=== PATIENT | female | born 1955 | race Caucasian/White ===

== ENCOUNTER 2021-03-14 13:53 | Emergency (ER) | payer OTHER, SELFPAY ==
--- NOTE | ~2021-03-14 | US_ITS ---
EXAMINATION: US VENOUS ULTRASOUND WITH DOPPLER LOWER EXTREMITY, LEFT CLINICAL INFORMATION: Left lower extremity pain COMPARISON: None TECHNIQUE: Ultrasound of the deep veins is performed from the hip to the calf with compression sonography and color and pulse Doppler assessment. Spectral analysis with color-flow imaging is performed. FINDINGS: There is normal venous compression and respiratory variation and augmented flow. The visualized common femoral vein, superficial femoral vein, profunda femoral vein, popliteal vein, and the trifurcation region shows no evidence of deep venous thrombosis. There is no significant popliteal fossa cyst. If the patient's symptoms persist, followup ultrasound in 5 days 7 days might be of value to exclude proximal propagation from a non-visualized calf vein. US/US venous duplex LE LT IMPRESSION: No DVT demonstrated in the left lower extremity.
[2021-03-14 15:32] VITALS: BP 127/98; PULSE 114; RESP 18; TEMP 36.6; O2SAT 99; BMI 32.3
--- NOTE | 2021-03-14 16:26 | ED_ITS ---
HPI - Extremity Problem General Chief complaint: General Medical Stated complaint: left leg pain Time Seen by Provider: 03/14/21 15:51 Source: patient Mode of arrival: ambulatory Limitations: no limitations History of Present Illness HPI Narrative: 65-year-old female presenting to the ED with complaints of left leg pain/swelling for the past few days worse today is concern of a DVT. Denies any dizziness, lightheadedness, nausea/vomiting, cough, shortness of breath, dyspnea on exertion, chest pain or any other symptoms complaints or concerns at this time. MD Complaint: extremity pain and extremity swelling Onset (ago): day(s) (Few days worse today) Pain Consistency: constant Location: left Severity scale (1-10): 6 Quality: aching and constant Radiation: none Relieving factors: nothing Exacerbating factors: palpation Associated symptoms: denies other symptoms Related Data Previous Rx's Medication Instructions Recorded hydrocortisone 1 appl TOPICAL QID PRN #454 g 03/14/21 Allergies Allergy/AdvReac Type Severity Reaction Status Date / Time No Known Allergies Allergy Verified 03/14/21 15:51 Review of Systems Review of Systems: Constitutional : No changes in activity, No lethargy, No recent prior head injury, No agitation, No increased fussiness ENT/Mouth : No Ear Pain, No Nasal discharge/drainage Eyes: No Eye Pain, No Swelling, No Redness, No Foreign Body, No Vision Changes Cardiovascular : No Chest Pain, No SOB Respiratory : No Cough Gastrointestinal : No Nausea, No Vomiting, No abdominal Pain Genitourinary : No Dysuria, No Urinary Frequency, No Urinary Incontinence, No Urgency, No Flank Pain Musculoskeletal : Positive left leg pain/swelling, No neck stiffness, No back pain/injury Skin : No lacerations Neuro : No unsteady gait, No Paresthesias, No Loss of Consciousness, No altered mental status, No Headache Yes all other systems are reviewed and are negative [facility] Past Medical History Attestation statement: The following information was validated with the patient. Social History Social History Advance Directives: No Advance Directives Information Provided: Yes Physical Exam Vital Signs: Vital Signs: Last Vital Signs Temp 97.8 F 03/14/21 15:32 Pulse 114 H 03/14/21 15:32 Resp 18 06/18/21 15:32 BP 127/98 H 03/14/21 15:32 Pulse Ox 99 03/14/21 15:32 Body Mass Index 32.3 vital signs have been reviewed as normal and appeared to be correct. Blood pressure normal. Heart rate normal. Respiration rate normal. Temperature normal. Oxygen saturation normal. Appearance: Alert. Oriented X3. No acute distress. Head: Normal external exam. Normocephalic. Atraumatic. Eyes: PERRLA. EOMI. Conjunctiva and sclera normal. Eyelids normal. ENT: Pharynx normal. Uvula midline. Moist mucous membranes. Neck: Normal inspection. Neck supple. FROM. No adenopathy. No meningeal signs. CVS: Normal heart rate and rhythm. Heart sound normal. Pulses normal throughout. No murmurs/rales/gallops. Respiratory: No respiratory distress. Painless inspiration. Breath sounds normal. No wheezes/rales/rhonchi noted. Chest nontender. No accessory muscle usage noted or decreased air movement noted. Back: Full range of motion noted. No rashes/lesion/induration/fluctuance or signs of infection noted. Skin: Skin warm and dry. Normal skin color. Normal skin turgor. No rashes/lesions/lacerations noted. Extremities:pt c ttp to poterior left lower leg. No lower extremity edema. Otherwise all other Extremities exhibit normal range of motion and nontender. Neuro: Oriented X 3. No motor deficit. No sensory deficit. Reflexes normal. Normal steady gait. No focal neuro deficits noted. Vascular: + radial pulses/+ 2 distal pedal pulses/+2 dorsalis pedis b/l. Normal cap refill. No cyanosis noted to upper extremity nails and lower extremity toes nails. Course Course Course Narrative: 65-year-old female presenting to the ED with complaints of atraumatic left lower leg pain/swelling for the past few days worse today. Denies any cardiac related complaints. Ultrasound obtained and negative for DVT or any other acute processes. Will DC home with symptomatic treatment and instructions to return if any new or worsening symptoms to follow up with primary care provider. Patient understands agrees with this plan. MDM - Extremity (Nontraumatic) Medical Records Attestation: I reviewed the patient's medical records. Imaging Data Venous Doppler of left lower extremity for DVT: Attestation: I personally reviewed and interpreted this imaging study as follows: Radiologist's impression: FINDINGS: There is normal venous compression and respiratory variation and augmented flow. The visualized common femoral vein, superficial femoral vein, profunda femoral vein, popliteal vein, and the trifurcation region shows no evidence of deep venous thrombosis. There is no significant popliteal fossa cyst. If the patient's symptoms persist, followup ultrasound in 5 days 7 days might be of value to exclude proximal propagation from a non-visualized calf vein. US/US venous duplex LE LT IMPRESSION: No DVT demonstrated in the left lower extremity. Discharge Plan Discharge Clinical Impression: Leg strain, Eczema Patient Disposition: Home, Self-Care Instructions: Leg Pain (ED) Additional Instructions: If you develop any dizziness, chest pain, shortness of breath, shortness of breath when your walking or when yearly and down flat he needs to return to the emergency department today. You reported that your not having any of the symptoms although if any of them developed the need to return. Follow up with her primary care provider. Prescriptions: New hydrocortisone 2.5 % ointment 1 appl topical QID PRN (Reason: eczema) Qty: 454 RF: 0 Referrals: Physician,None [Primary Care Provider] - 2 days (your pcp) Print Language: Luxembourgish
== END 2021-03-14 17:34 | disposition home or self-care (01) ==
PROVIDERS: Emergency Provider Internal Medicine
DX: S86.912A Strain of unspecified muscle(s) and tendon(s) at lower leg level, left leg, initial encounter (principal); L30.9 Dermatitis, unspecified; M79.605 Pain in left leg; X58.XXXA Exposure to other specified factors, initial encounter; Y93.9 Activity, unspecified; Y92.9 Unspecified place or not applicable; Y99.9 Unspecified external cause status
CPT/HCPCS: 93971; 99283; 99284

== ENCOUNTER 2021-06-20 15:22 | Emergency (ER) | payer OTHER, SELFPAY ==
--- NOTE | ~2021-06-20 | XR_ITS ---
EXAMINATION: XR CHEST CLINICAL INFORMATION: Chest pain COMPARISON: None TECHNIQUE: AP portable view of the chest was obtained. FINDINGS: Heart is upper limits of normal in size. No pneumothorax or pleural effusion. No evidence of pulmonary edema. There is degenerative spurring about the left glenohumeral joint. XR/XR chest 1V IMPRESSION: No significant acute parenchymal disease identified.
[2021-06-20 15:29] VITALS: BP 119/67; PULSE 133; RESP 18; TEMP 36.8; O2SAT 100; BMI 34.9
--- NOTE | 2021-06-20 15:49 | ECG_ITS ---
Test Reason : CHEST PAIN Blood Pressure : / mmHG Vent. Rate : 128 BPM Atrial Rate : 113 BPM P-R Int : 000 ms QRS Dur : 086 ms QT Int : 270 ms P-R-T Axes : 000 -15 -11 degrees QTc Int : 394 ms Atrial fibrillation with rapid ventricular response Nonspecific T wave abnormality Abnormal ECG No previous ECGs available Referred By: Generic ED Physician Electronically Signed By:KYLIE DE LOS SANTOS
[2021-06-20 16:01] LABS: MANUAL DIFF FLAG NO
[2021-06-20 16:03] LABS: Basophils Percent Auto 0.6 % (0-2); Eosinophils Absolute Auto 0.3 X10*3/uL (0.0-0.4); Eosinophils Percent Auto 5.1 % (0-4); Hematocrit 45.1 % (37-47); Hemoglobin 14.3 g/dl (12.0-16.0); Imm Gran Abs Auto 0.01 X10*3/uL (0.00-0.03); Imm Gran Pct Auto 0.2 % (0.0-0.4); Lymphocytes Absolute Auto 2.5 X10*3/uL (1.2-4.9); Lymphocytes Percent Auto 39.2 % (20-40); Mean Corpuscular HGB Conc 31.7 g/dl (31.0-35.0); Mean Corpuscular Hemoglobin 27.9 pg (27.0-33.0); Mean Corpuscular Volume 88.1 fL (80-98); Mean Platelet Volume 9.9 fL (9.4-12.3); Monocytes Absolute Auto 0.5 X10*3/uL (0.1-1.2); Monocytes Percent Auto 8.1 % (2-11); Neutrophils Percent Auto 46.8 % (45-73); Platelet Count 187 X10*3/uL (160-400); Red Blood Count 5.12 X10*6/uL (4.20-5.50); White Blood Count 6.4 X10*3/uL (4.8-10.8)
[2021-06-20 16:17] LABS: Anion Gap 13 (12-20); Blood Urea Nitrogen 18 mg/dL (9-16); Calcium 9.2 mg/dL (8.4-10.2); Carbon Dioxide 24 mmol/L (22-29); Chloride 107 mmol/L (96-108); Creatinine Clr Calc Pharmacy 86.8; Estimated Glomerular Filt Rate > 60; Glucose Random 94 mg/dL (60-115); Potassium 4.1 mmol/L (3.3-5.1); Sodium 140 mmol/L (135-145)
[2021-06-20 16:24] LABS: Troponin-I High Sensitivity < 3.5 ng/L (<3.5-17.0)
[2021-06-20 16:55] VITALS: BP 122/77; PULSE 126
[2021-06-20] MEDS: dilTIAZem HCL 50 MG/10 ML VIAL IVPUSH ×2 (16:55→17:59)
--- NOTE | 2021-06-20 16:58 | ED.ARRPALP ---
HPI - Arrhythmia/Palpitations General Chief Complaint: Arrhythmia/Palpitations Stated Complaint: palpitations Time Seen by Provider: 06/20/21 16:37 Source: patient Mode of arrival: ambulatory Limitations: no limitations History of Present Illness HPI narrative: Patient is a 66-year-old female the past medical history of CHF, AFib on Eliquis who presents with weeks of palpitations. She states she has been in [place] for the last month where she saw doctor who prescribed her 100 Lopressor, 40 furosemide b.i.d. which she takes 80 q.h.s., and Eliquis but was not told she has AFib. She has not met with [place] doctor as she just returned from [facility]. She denies any chest pain, dizziness, arm pain, shoulder pain, neck pain, back pain, headaches, nausea, sob, sweating vomiting or diarrhea or fevers. She regionally went to Urgent Care, they gave us a report of the patient having an elevated D-dimer of 2283 an elevated BNP leg swelling, shortness of breath and her heart rate and 130 to 150s in the [facility] emergency department. Unsure where this information came from Related Data Previous Rx's Medication Instructions Recorded hydrocortisone 2.5 % topical 1 appl TOPICAL QID PRN #454 g 03/14/21 ointment diltiazem HCl 120 mg 120 mg PO QAM #10 cap 06/20/21 capsule,extended release 24 hr (Cardizem CD) Allergies Allergy/AdvReac Type Severity Reaction Status Date / Time No Known Allergies Allergy Verified 03/14/21 15:51 Review of Systems Review of Systems: Yes all other systems are reviewed and are negative [facility] Social History Social History Advance Directives: No Advance Directives Information Provided: No Patient : No Physical Exam Vital Signs: Vital Signs: Last Vital Signs Temp 97.6 F 06/20/21 17:48 Pulse 110 H 06/20/21 17:59 Resp 17 06/20/21 17:48 BP 132/90 H 06/20/21 17:59 Pulse Ox 97 06/20/21 17:48 Body Mass Index 34.9 Const: General: cooperative, healthy appearing, comfortable, no acute distress and well developed Orientation/consciousness: patient oriented x3 Limitations: no limitations HENMT: Head: Yes normal to inspection Eyes: General: appearance normal, both eyes and all related structures Neck: Neck: Yes normal visual inspection, Yes full ROM and Yes no JVD Resp: Effort & Inspection: normal respiratory effort and able to speak in complete sentences Auscultation: clear to auscultation bilaterally Cardio: Rate: tachycardic Rhythm: abnormal rhythm Heart sounds: normal S1 and S2 GI: Inspection: Yes normal to inspection Palpation (GI): Soft to palpation and nontender Skin: General skin exam: no rashes or lesions noted Neuro: General: patient oriented x3 Extrem: General: Yes normal to inspection, Yes no pedal edema and Yes no calf tenderness Course Course Course Narrative: Patient is a 66-year-old female the past medical history of CHF, AFib on Eliquis who presents with weeks of palpitations. EKG showed a AFib with RVR, rate of 128BPM. Chest x-ray was normal, labs normal but a BNP and D-dimer were not done, I will do those now. Will give 5 mg Cardizem and reassess. Reevaluation(s) Reevaluation #1: Patient's heart rate down to the low 100s, will give 2nd dose of IV Cardizem and monitor. Likely discharge shortly with follow-up with Cardiology and a 10 day supply of p.o. Cardizem. Time: 17:25 MDM - Arrhythmia/Palpitations Lab Data Attestation: I reviewed the patient's lab results. Result diagrams: 06/20/21 15:55 06/20/21 15:55 Labs: Lab Results 06/20/21 06/20/21 06/20/21 Range/Units 15:55 15:55 15:55 WBC 6.4 (4.8-10.8) X10*3/uL RBC 5.12 (4.20-5.50) X10*6/uL Hgb 14.3 (12.0-16.0) g/dl Hct 45.1 (37-47) % MCV 88.1 (80-98) fL MCH 27.9 (27.0-33.0) pg MCHC 31.7 (31.0-35.0) g/dl RDW 14.0 (11.0-16.0) % Plt Count 187 (160-400) X10*3/uL MPV 9.9 (9.4-12.3) fL Immature Gran % (Auto) 0.2 (0.0-0.4) % Neut % (Auto) 46.8 (45-73) % Lymph % (Auto) 39.2 (20-40) % [place] % (Auto) 8.1 (2-11) % Eos % (Auto) 5.1 H (0-4) % Baso % (Auto) 0.6 (0-2) % Lymph # (Auto) 2.5 (1.2-4.9) X10*3/uL [place] # (Auto) 0.5 (0.1-1.2) X10*3/uL Eos # (Auto) 0.3 (0.0-0.4) X10*3/uL Baso # (Auto) 0.0 (0.0-0.2) X10*3/uL Abs Immat Gran (auto) 0.01 (0.00-0.03) X10*3/uL Absolute Neuts (auto) 3.0 (2.0-8.3) X10*3/uL Absolute Nucleated RBC 0.000 (0.0-0.012) X10*3/uL Nucleated RBC % (auto) 0.0 (0.0-0.2) /100WBC Sodium 140 (135-145) mmol/L Potassium 4.1 (3.3-5.1) mmol/L Chloride 107 (96-108) mmol/L Carbon Dioxide 24 (22-29) mmol/L Anion Gap 13 (12-20) BUN 18 H (9-16) mg/dL Creatinine 0.80 (0.5-1.4) mg/dL Estim Creat Clear Calc 86.8 Estimated GFR > 60 Random Glucose 94 (60-115) mg/dL Calcium 9.2 (8.4-10.2) mg/dL Troponin I High Sens < 3.5 (<3.5-17.0) ng/L B-Natriuretic Peptide 247 H (<100) pg/mL Urine Color Urine Appearance Urine pH (5.0-8.0) Ur Specific [place] (1.005-1.025) Urine Protein (NEG-TRACE) MG/DL Urine Glucose (UA) (NEG) MG/DL Urine Ketones (NEG) MG/DL Urine Blood (NEG) Urine Nitrite (NEG) Ur Leukocyte Esterase (NEG) 06/20/21 Range/Units 17:42 WBC (4.8-10.8) X10*3/uL RBC (4.20-5.50) X10*6/uL Hgb (12.0-16.0) g/dl Hct (37-47) % MCV (80-98) fL MCH (27.0-33.0) pg MCHC (31.0-35.0) g/dl RDW (11.0-16.0) % Plt Count (160-400) X10*3/uL MPV (9.4-12.3) fL Immature Gran % (Auto) (0.0-0.4) % Neut % (Auto) (45-73) % Lymph % (Auto) (20-40) % [place] % (Auto) (2-11) % Eos % (Auto) (0-4) % Baso % (Auto) (0-2) % Lymph # (Auto) (1.2-4.9) X10*3/uL [place] # (Auto) (0.1-1.2) X10*3/uL Eos # (Auto) (0.0-0.4) X10*3/uL Baso # (Auto) (0.0-0.2) X10*3/uL Abs Immat Gran (auto) (0.00-0.03) X10*3/uL Absolute Neuts (auto) (2.0-8.3) X10*3/uL Absolute Nucleated RBC (0.0-0.012) X10*3/uL Nucleated RBC % (auto) (0.0-0.2) /100WBC Sodium (135-145) mmol/L Potassium (3.3-5.1) mmol/L Chloride (96-108) mmol/L Carbon Dioxide (22-29) mmol/L Anion Gap (12-20) BUN (9-16) mg/dL Creatinine (0.5-1.4) mg/dL Estim Creat Clear Calc Estimated GFR Random Glucose (60-115) mg/dL Calcium (8.4-10.2) mg/dL Troponin I High Sens (<3.5-17.0) ng/L B-Natriuretic Peptide (<100) pg/mL Urine Color YELLOW Urine Appearance CLEAR Urine pH 5.5 (5.0-8.0) Ur Specific [place] >= 1.030 H (1.005-1.025) Urine Protein NEG (NEG-TRACE) MG/DL Urine Glucose (UA) NEG (NEG) MG/DL Urine Ketones NEG (NEG) MG/DL Urine Blood NEG (NEG) Urine Nitrite NEG (NEG) Ur Leukocyte Esterase NEG (NEG) Imaging Data Chest x-ray: Attestation: I personally reviewed and interpreted this imaging study as follows: Radiologist's impression: Launch?Image [address] [address] XRay Report Signed Patient: Lauren Hinojosa MR#: [id number] : 1955 Acct:[id number] Age/Sex: 66 / F ADM Date: 06/20/21 Loc: .ED Attending Dr: Ordering Physician: Generic ED Physician Date of Service: 06/20/21 Procedure(s): XR chest 1V Accession Number(s): [id number] cc: Generic ED Physician~ EXAMINATION: XR CHEST CLINICAL INFORMATION: Chest pain COMPARISON: None TECHNIQUE: AP portable view of the chest was obtained. FINDINGS: Heart is upper limits of normal in size. No pneumothorax or pleural effusion. No evidence of pulmonary edema. There is degenerative spurring about the left glenohumeral joint. XR/XR chest 1V IMPRESSION: No significant acute parenchymal disease identified. ? Dictated By: Wally Sanches MD Signed By: <Electronically signed by Wally Sanches MD in OV> 06/20/21 1644 DD/ 1549 TD/TT:? Sales Representative Livestock: JULIAN ECG Data Attestation: I personally reviewed and interpreted this ECG as follows: Interpretation: [address] [address] Electrocardiograph Report Draft Patient: Lauren Hinojosa MR#: [id number] : 1955 Acct:[id number] Age/Sex: 66 / F ADM Date: 06/20/21 Loc: .ED Attending Dr: Ordering Physician: Gael Kahn MD Date of Service: 06/20/21 Procedure(s): ECG 12 lead EKG Accession Number(s): [id number] cc: ~ Test Reason : CHEST PAIN Blood Pressure : / mmHG Vent. Rate : 128 BPM ? ? Atrial Rate : 113 BPM ?? P-R Int : 000 ms? QRS Dur : 086 ms ? ? QT Int : 270 ms ? ? ? P-R-T Axes : 000 -15 -11 degrees ?? QTc Int : 394 ms ? Atrial fibrillation with rapid ventricular response Nonspecific T wave abnormality Abnormal ECG No previous ECGs available ? Referred By: Generic ED Physician ? Electronically Signed By: Dictated By: Signed By: DD/ 1537 TD/TT: 06/20/21 9987 Sales Representative Livestock: Discharge Plan Discharge Clinical Impression: Atrial fibrillation Patient Disposition: Home, Self-Care Instructions: A-fib (Atrial Fibrillation) (ED) Additional Instructions: As discussed, I am starting you on a new medication to control your elevated heart rate with your AFib, I have given you a 10 day does, please be sure to monitor your heart rate a as a showed you. 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 If you have worsening symptoms, please return to the emergency room. 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
[2021-06-20 17:48] VITALS: BP 132/90; PULSE 110; RESP 17; TEMP 36.4; O2SAT 97
[2021-06-20 17:49] LABS: B Type Natriuretic Peptide 247 pg/mL (<100)
[2021-06-20 17:54] LABS: Appearance Urine CLEAR; Color Urine YELLOW; Glucose Urine UA NEG (NEG); Leukocyte Esterase Urine NEG (NEG); Nitrite Urine NEG (NEG); PH 5.5 (5.0-8.0); Specific Gravity - Urine >= 1.030 (1.005-1.025); Urine Blood NEG (NEG); Urine Ketones NEG (NEG); Urine Protein NEG (NEG-TRACE)
[2021-06-20 17:59] VITALS: BP 132/90; PULSE 110
== END 2021-06-20 18:36 | disposition home or self-care (01) ==
PROVIDERS: Physician Assistant; Emergency Provider Emergency Medicine
DX: I48.91 Unspecified atrial fibrillation (principal); R00.2 Palpitations; Z79.01 Long term (current) use of anticoagulants; Z79.899 Other long term (current) drug therapy
CPT/HCPCS: 36415; 71045; 80048; 81003; 83880; 84484; 85025; 93005; 96374; 96376; 99285

== ENCOUNTER → 2021-07-01 11:20 | Outpatient (BNVA) | payer OTHER, SELFPAY | PROVIDERS: Visit Provider Nurse Practitioner Family ==

== ENCOUNTER → 2021-07-02 07:20 | Outpatient (REF) | payer OTHER, SELFPAY ==
--- NOTE | 2021-07-02 07:25 | CA_ITS ---
Transthoracic Echocardiogram Patient (Last, First, Middle): Lauren Hinojosa, Gender: Female Date of : 1955 Age: 66 Procedure Date: 07/02/2021 Procedure Type: Transthoracic Echocardiogram Location: OP Height: 66. cm Weight: 102. kg BSA: 1.07 m2 Heart Rate: bpm BP: 120 / 66 mmHg Operator And Truck Driver: ESTEFANÍA Referring MD: Antonia Mendenhall IT OPERATIONS ANALYSTCarla Symptoms: I48.19 - Other persistent atrial fibrillation Study Quality: Fair ECG Rhythm: Sinus Conclusions: - The left ventricular systolic function is severely decreased. The visually estimated ejection fraction is between 15-20%. - LV peak longitudinal global longitudinal strain -5.1% (markedly diminished). - The left atrium is severely dilated. - Suspect PFO by color Doppler. - There is mild mitral valve regurgitation. - There is mild tricuspid valve regurgitation. Findings Left Ventricle Mildly increased left ventricular cavity size. There is normal left ventricular wall thickness. The left ventricular systolic function is severely decreased. The visually estimated ejection fraction is between 15 20%. Diastolic function is indeterminate on the basis of available data. LV peak longitudinal global longitudinal strain -5.1% (markedly diminished). Right Ventricle Normal right ventricular cavity size. There is low normal right ventricular systolic function. Atria The left atrium is severely dilated. The right atrium is moderately dilated. Suspect PFO by color Doppler. Aortic Valve There is a normal trileaflet aortic valve. There is mild calcification of the aortic valve. There is no aortic valve stenosis. There is no aortic valve regurgitation. Mitral Valve The mitral valve appears normal. There is mild mitral valve regurgitation. There is no mitral valve stenosis. Pulmonic Valve The pulmonic valve was not well visualized. Tricuspid Valve Normal tricuspid valve structure. There is mild tricuspid valve regurgitation. The pulmonary artery systolic pressure is normal. Great Vessels The aortic annulus, sinuses of valsalva, and asc aorta are normal in size. Venous The inferior vena cava is normal in size and collapses less than 50% with inspiration. Pericardium/Pleural There is no evidence of pericardial effusion. Prior Study Comparison No prior study available for comparison. Measurements M-Mode Liner Measurements Normals - Women/Men IVSd: 0.88 0.6-0.9/0.6-1.0 cm LVIDd: 6.04 3.9-5.3/4.2-5.9 cm LVIDd Index: 5.64 1.9-3.2 cm/m2 LVIDs: 4.84 2.0-3.8 cm LVPWd: 0.97 0.6-0.9/0.6-1.0 cm LV Mass: 280.49 67-162/88-224g LV Mass Index: 262.14 43-95/49-115 g/m2 M-Mode Volumes LV EDV: 183.00 LV ESV: 110.00 2D Linear Measurements IVSd: 0.85 0.6-0.9/0.6-1.0 cm LVIDd: 5.97 3.9-5.3/4.2-5.9 cm LVIDd Index: 5.58 2.4-3.2/2.2-3.1 cm/m2 LVIDs: 4.75 2.0-3.6 cm LVPWd: 0.86 0.7-1.1 cm Ao Root: 2.50 2.1-3.5 cm LA Diam: 4.50 2.7-3.8/3.0-4.0 cm LAIDs Index: 4.21 1.5-2.3 cm/m2 LV Mass: 249.82 67-162/88-224 g LV Mass Index: 233.47 43-95/49-115 g/m2 LVOT Diam: 2.00 3.0+(-)1.3 cm 2D Systolic Function EF 4C: 36.70 >55% EF 2C: 26.10 >55% EF BiP: 29.20 >55% M-Mode Systolic Function FS: 19.90 27-47/25-43% LVEF: 39.90 >55% Mitral Valve MV Pk E: 0.83 MV Decel Time: 135.00 E'Lateral: 9.72 E'Medial: 7.11 E/E' Med: 11.70 E/E' Lat: 8.60 PHT: 39.00 MVA PHT: 5.64 Decel [place]: 6.45 Aortic Valve AoV Pk Jefry: 1.07 AoV Pk Grad: 5.00 LVOT LVOT Pk Jefry: 0.68 LVOT Mn Jefry: 0.48 LVOT VTI: 0.11 LVOT Pk Grad: 2.00 LVOT Mn Grad: 1.00 LVOT Diam: 2.00 LVOT Area: 3.14 Diastolic Function MV Pk E: 0.83 E'Medial: 7.11 E/E' Med: 11.70 E' Laterial: 9.72 E/E' Lat: 8.60 Right Ventricle TAPSE (mm): 1.70 Tricuspid Valve TR Pk Jefry: 2.13 TR Pk Grad: 18.00 RA Press: 3.00 RVSP: 21.00 Great Vessels Aorta Ao Root-2D: 2.50 2.0-3.7 cm Ao Asc: 3.00 2.1-3.4 cm Updated in Other Vendor System with Status of Final Lorne Ayala MD electronically signed on 07/02/2021 2:45:09 PM with status of Final
== END ==
LOC: HO.CARD 07:20
PROVIDERS: Visit Provider Nurse Practitioner Family
DX: I48.19 Other persistent atrial fibrillation (principal)
CPT/HCPCS: 93005; 93306; 93356; 99202

== ENCOUNTER 2021-07-02 17:24 | Inpatient (IN) | payer OTHER, SELFPAY ==
--- NOTE | 2021-07-02 | ECG_ITS ---
Test Reason : A-FIB Blood Pressure : / mmHG Vent. Rate : 104 BPM Atrial Rate : 131 BPM P-R Int : 000 ms QRS Dur : 088 ms QT Int : 364 ms P-R-T Axes : 000 -11 -01 degrees QTc Int : 478 ms Atrial fibrillation with rapid ventricular response Nonspecific T wave abnormality Abnormal ECG When compared with ECG of 20-JUN-2021 15:37, Nonspecific T wave abnormality, improved in Lateral leads Referred By: Generic ED Physician Electronically Signed By:KYLIE DE LOS SANTOS
--- NOTE | ~2021-07-02 | XR_ITS ---
EXAMINATION: XR CHEST CLINICAL INFORMATION: Chest pressure. COMPARISON: Chest radiograph dated from 06/20/2021. TECHNIQUE: 2 views of the chest were obtained. FINDINGS: Normal appearance of the cardiomediastinal silhouette. Minimal interstitial prominence without focal airspace opacities, pleural effusions or pneumothorax. No acute osseous findings. XR/XR chest 2V IMPRESSION: Mild interstitial prominence of uncertain etiology. Acutely, this could be seen in the setting of an infectious/inflammatory process of the small airways. No focal consolidation.
[2021-07-02 19:31] VITALS: BP 147/78; PULSE 96; RESP 20; TEMP 35.9; O2SAT 98; BMI 32.3
[2021-07-02 20:13] LABS: MANUAL DIFF FLAG NO
[2021-07-02 20:17] LABS: Basophils Percent Auto 0.5 % (0-2); Eosinophils Absolute Auto 0.4 X10*3/uL (0.0-0.4); Eosinophils Percent Auto 6.3 % (0-4); Hematocrit 46.3 % (37-47); Hemoglobin 14.9 g/dl (12.0-16.0); Imm Gran Abs Auto 0.01 X10*3/uL (0.00-0.03); Imm Gran Pct Auto 0.2 % (0.0-0.4); Lymphocytes Absolute Auto 2.3 X10*3/uL (1.2-4.9); Lymphocytes Percent Auto 36.1 % (20-40); Mean Corpuscular HGB Conc 32.2 g/dl (31.0-35.0); Mean Corpuscular Hemoglobin 28.1 pg (27.0-33.0); Mean Corpuscular Volume 87.2 fL (80-98); Mean Platelet Volume 9.6 fL (9.4-12.3); Monocytes Absolute Auto 0.5 X10*3/uL (0.1-1.2); Monocytes Percent Auto 7.9 % (2-11); Neutrophils Absolute Auto 3.1 X10*3/uL (2.0-8.3); Platelet Count 190 X10*3/uL (160-400); Red Blood Count 5.31 X10*6/uL (4.20-5.50); Red Cell Distribution Width 14.5 % (11.0-16.0); White Blood Count 6.3 X10*3/uL (4.8-10.8)
[2021-07-02 20:27] LABS: Anion Gap 11 (12-20); Blood Urea Nitrogen 21 mg/dL (9-16); Calcium 9.2 mg/dL (8.4-10.2); Carbon Dioxide 29 mmol/L (22-29); Chloride 104 mmol/L (96-108); Creatinine Clr Calc Pharmacy 76.8; Estimated Glomerular Filt Rate > 60; Glucose Random 97 mg/dL (60-115); Potassium 3.5 mmol/L (3.3-5.1); Sodium 140 mmol/L (135-145)
[2021-07-02 20:35] LABS: Troponin-I High Sensitivity < 3.5 ng/L (<3.5-17.0)
[2021-07-02 22:00] VITALS: BP 134/84; PULSE 76; RESP 20; TEMP 36.4; O2SAT 98
[2021-07-02 22:51] VITALS: PULSE 84; RESP 23; O2SAT 99
--- NOTE | 2021-07-02 23:30 | ED_ITS ---
HPI - General Adult General Chief complaint: General Medical Stated complaint: Afib Time Seen by Provider: 07/02/21 23:29 Source: patient Mode of arrival: ambulatory Limitations: no limitations History of Present Illness HPI narrative: Patient has a history of atrial fibrillation for last 2 months seen by associate professor of theology today had echo done which showed ejection fraction of 15- 20% only patient is on Eliquis. Patient been having atrial fibrillation continuously for last 2 months .patient sent here for admission for cardioversion in the morning for persistent atrial fibrillation with low ejection fraction patient feels okay otherwise no dizziness no chest pain no shortness of breath no fever or chills Related Data Home Medications Medication Instructions Recorded Confirmed furosemide 40 mg tablet (Lasix) 40 mg PO DAILY 07/01/21 07/01/21 Previous Rx's Medication Instructions Recorded hydrocortisone 2.5 % topical 1 appl TOPICAL QID PRN #454 g 03/14/21 ointment apixaban 5 mg tablet (Eliquis) 5 mg PO BID 30 Days #60 tab 07/01/21 diltiazem HCl 120 mg 120 mg PO BID 30 Days #60 cap 07/01/21 capsule,extended release 24 hr (Cardizem CD) Allergies Allergy/AdvReac Type Severity Reaction Status Date / Time No Known Allergies Allergy Verified 03/14/21 15:51 Review of Systems Review of Systems: Yes all other systems are reviewed and are negative [facility] Social History Social History Patient Tobacco Use Status: Never used Tobacco Advance Directives: No Physical Exam Vital Signs: Vital Signs: Last Vital Signs Temp 97.6 F 07/03/21 01:11 Pulse 90 07/03/21 01:11 Resp 14 07/03/21 01:11 BP 127/82 07/03/21 01:11 Pulse Ox 96 07/03/21 01:11 Body Mass Index 32.3 Appearance: Alert. Oriented X3. No acute distress. Eyes: No pallor or icterus ENT: Pharynx normal. Oral Mucosa moist Neck: Normal inspection. Neck supple. CVS: Irregularly irregular heart rate. Pulses normal. No murmur/ gallop Respiratory: No respiratory distress. Equal air entry bilateral, no wheezing/rales/rhonchi Abdomen: Soft and nontender. Bowel sounds are present, no mass palpable, no CVA tenderness Skin: Skin warm and dry. Normal skin color. Normal skin turgor. Extremities: No lower extremity edema. No calf tenderness Neuro: Oriented X 3. Medical Decision Making MDM Narrative Medical decision making narrative: Patient with poor LV ejection fraction 15-20% with persistent atrial fibrillation anticoagulated plan to admit for cardioversion in a.m. by associate professor of theology Lab Data Lab results reviewed: Yes I reviewed the patient's lab results. Result diagrams: 07/02/21 20:07 07/02/21 20:07 Labs: Lab Results 07/02/21 07/02/21 07/02/21 Range/Units 20:07 20:07 20:07 WBC 6.3 (4.8-10.8) X10*3/uL RBC 5.31 (4.20-5.50) X10*6/uL Hgb 14.9 (12.0-16.0) g/dl Hct 46.3 (37-47) % MCV 87.2 (80-98) fL MCH 28.1 (27.0-33.0) pg MCHC 32.2 (31.0-35.0) g/dl RDW 14.5 (11.0-16.0) % Plt Count 190 (160-400) X10*3/uL MPV 9.6 (9.4-12.3) fL Immature Gran % (Auto) 0.2 (0.0-0.4) % Neut % (Auto) 49.0 (45-73) % Lymph % (Auto) 36.1 (20-40) % [place] % (Auto) 7.9 (2-11) % Eos % (Auto) 6.3 H (0-4) % Baso % (Auto) 0.5 (0-2) % Lymph # (Auto) 2.3 (1.2-4.9) X10*3/uL [place] # (Auto) 0.5 (0.1-1.2) X10*3/uL Eos # (Auto) 0.4 (0.0-0.4) X10*3/uL Baso # (Auto) 0.0 (0.0-0.2) X10*3/uL Abs Immat Gran (auto) 0.01 (0.00-0.03) X10*3/uL Absolute Neuts (auto) 3.1 (2.0-8.3) X10*3/uL Absolute Nucleated RBC 0.000 (0.0-0.012) X10*3/uL Nucleated RBC % (auto) 0.0 (0.0-0.2) /100WBC Sodium 140 (135-145) mmol/L Potassium 3.5 (3.3-5.1) mmol/L Chloride 104 (96-108) mmol/L Carbon Dioxide 29 (22-29) mmol/L Anion Gap 11 L (12-20) BUN 21 H (9-16) mg/dL Creatinine 0.84 (0.5-1.4) mg/dL Estim Creat Clear Calc 76.8 Estimated GFR > 60 Random Glucose 97 (60-115) mg/dL Calcium 9.2 (8.4-10.2) mg/dL Troponin I High Sens < 3.5 (<3.5-17.0) ng/L ECG Data Attestation: I personally reviewed and interpreted this ECG as follows: Interpretation: Atrial fibrillation went to rate 104 beats per minute no acute ST wave changes no acute ischemia Discharge Plan Discharge Clinical Impression: Atrial fibrillation with rapid ventricular response Patient Disposition: Admitted As Inpatient
[2021-07-03] VITALS (17 sets, daily range): BP systolic 96–150; BP diastolic 63–92; PULSE 70–107; RESP 14–20; TEMP 35.9–36.7; O2SAT 94–100
--- NOTE | 2021-07-03 | ECG_ITS ---
Test Reason : post cardioversion Blood Pressure : / mmHG Vent. Rate : 084 BPM Atrial Rate : 084 BPM P-R Int : 166 ms QRS Dur : 092 ms QT Int : 384 ms P-R-T Axes : 048 -15 000 degrees QTc Int : 453 ms Normal sinus rhythm T wave abnormality, consider anterior ischemia Abnormal ECG Normal sinus rhythm has replaced Atrial fibrillation T wave inversion now evident in Anterior leads Referred By: Callie Gil Electronically Signed By:ALTAGRACIA FISHER MD
[2021-07-03] MEDS: Apixaban 5 MG TABLET PO ×3 (00:01→20:10)
--- NOTE | 2021-07-03 00:32 | PM.IMHP ---
History of Present Illness Date of Service: 07/03/21 Chief Complaint: AFib with RVR, cardioversion This is a 66-year-old female with a recently diagnosed AFib who has been complaining of palpitations and shortness of breath for 2 months. Patient was seen in the ED on 07/02, given Cardizem and refer to Cardiology. Patient was seen by Cardiology on 07/02 an advice to undergo echocardiogram which showed an ejection fraction of 15-20% as a result custodial services manager asked patient to come to the hospital to be admitted for cardioversion of her AFib. Patient herself reports palpitations with no dyspnea, no lower extremity edema, no orthopnea or PND at this time. She denies having any chest pain. No headache or change in vision, no abdominal pain nausea or vomiting, no diarrhea constipation, no urinary symptoms. On arrival to the ED no significant Abnormal vitals Labs are unremarkable with troponin less than 3.5 Heart rate of 104, nonspecific T-wave abnormality Chest x-ray shows mild interstitial prominence of uncertain etiology. Patient will be admitted for cardioversion in a.m. by Cardiology Review of Systems Review of Systems: Yes all other systems are reviewed and are negative [facility] Medical History Atrial fibrillation CHF (congestive heart failure) Family History Mother Breast cancer Father Coronary artery disease Pertinent family history: Breast cancer in mother Coronary artery disease in father Surgical History History of Social History Patient Tobacco Use Status: Never used Tobacco Advance Directives: No Meds Allergies Allergy/AdvReac Type Severity Reaction Status Date / Time No Known Allergies Allergy Verified 03/14/21 15:51 Home Medications Medication Instructions Recorded Confirmed Last Taken Type furosemide 40 mg tablet (Lasix) 40 mg PO DAILY 07/01/21 07/03/21 Unknown History Physical Exam Vital Signs and Narrative: Vital Signs: Last Vital Signs Temp 97.6 F 07/03/21 00:00 Pulse 86 07/03/21 00:00 Resp 17 07/03/21 00:00 BP 129/87 07/03/21 00:00 Pulse Ox 99 07/03/21 00:00 Body Mass Index 32.3 Const: General: cooperative and no acute distress Orientation/consciousness: patient oriented x3 Eyes: General: appearance normal, both eyes and all related structures Pupils: Equal, round and reactive pupils present Resp: Effort & Inspection: normal respiratory effort Auscultation: clear to auscultation bilaterally Cardio: Other: Irregular rhythm Rate: regular rate GI: Palpation (GI): Soft to palpation Auscultation: normal bowel sounds Skin: General skin exam: no rashes or lesions noted Neuro: General: patient oriented x3 Cranial nerves: Yes Equal, round and reactive pupils present Cognition (Neuro): normal cognition Extrem: General: Yes normal to inspection and Yes no pedal edema Results Labs CBC and Chem 7: 07/02/21 20:07 07/02/21 20:07 Labs: Laboratory Results - last 24 hr 07/02/21 07/02/21 07/02/21 20:07 20:07 20:07 MCV 87.2 MCH 28.1 MCHC 32.2 RDW 14.5 Plt Count 190 MPV 9.6 Immature Gran % (Auto) 0.2 Neut % (Auto) 49.0 Lymph % (Auto) 36.1 [place] % (Auto) 7.9 Eos % (Auto) 6.3 H Baso % (Auto) 0.5 Lymph # (Auto) 2.3 [place] # (Auto) 0.5 Eos # (Auto) 0.4 Baso # (Auto) 0.0 Abs Immat Gran (auto) 0.01 Absolute Neuts (auto) 3.1 Absolute Nucleated RBC 0.000 Nucleated RBC % (auto) 0.0 Anion Gap 11 L Estim Creat Clear Calc 76.8 Estimated GFR > 60 Random Glucose 97 Calcium 9.2 Troponin I High Sens < 3.5 Imaging Radiologist's Impressions: Impressions Chest X-Ray 07/02/21 19:51 IMPRESSION: Mild interstitial prominence of uncertain etiology. Acutely, this could be seen in the setting of an infectious/inflammatory process of the small airways. No focal consolidation. Assessment and Plan (1) Atrial fibrillation with rapid ventricular response: Status: Acute 66-year-old female with past medical history of recently diagnosed AFib presents to the hospital for cardioversion after echocardiogram showed an ejection fraction of 15-20% # AFib with RVR - heart rate of 104 - asymptomatic - will start her on Lopressor 2.55 mg q.4 hours p.r.n. to control heart rate less than 90 - cardiology consult for for cardioversion in a - continue Eliquis and diltiazem # history of CHF - no evidence of volume overload or CHF exacerbation - continue home Lasix - will obtain BMP - cardiology on consult DVT prophylaxis: Eliquis Quality Stroke Does the patient have a stroke diagnosis?: No VTE Prior VTE?: No VTE Risk Level:: Medical - moderate - high VTE Device Contraindication: Treatment Not Indicated VTE Drug Contraindication: N/A - Med Ordered
[2021-07-03 01:20] LABS: COVID-19 Test Negative (Negative); IDNOW Serial# 9DD0AD1C
[2021-07-03 02:39] LABS: Thyroid Stimulating Hormone 3.62 uIU/mL (0.32-4.0)
[2021-07-03 06:48] LABS: MANUAL DIFF FLAG NO
[2021-07-03 06:58] LABS: Basophils Percent Auto 0.4 % (0-2); Eosinophils Absolute Auto 0.4 X10*3/uL (0.0-0.4); Eosinophils Percent Auto 7.9 % (0-4); Hematocrit 42.5 % (37-47); Hemoglobin 13.6 g/dl (12.0-16.0); Imm Gran Abs Auto 0.02 X10*3/uL (0.00-0.03); Imm Gran Pct Auto 0.4 % (0.0-0.4); Lymphocytes Absolute Auto 1.6 X10*3/uL (1.2-4.9); Lymphocytes Percent Auto 29.7 % (20-40); Mean Corpuscular Hemoglobin 27.8 pg (27.0-33.0); Mean Corpuscular Volume 86.9 fL (80-98); Mean Platelet Volume 9.9 fL (9.4-12.3); Monocytes Absolute Auto 0.5 X10*3/uL (0.1-1.2); Monocytes Percent Auto 9.1 % (2-11); Neutrophils Absolute Auto 2.8 X10*3/uL (2.0-8.3); Neutrophils Percent Auto 52.5 % (45-73); Platelet Count 172 X10*3/uL (160-400); Red Blood Count 4.89 X10*6/uL (4.20-5.50); Red Cell Distribution Width 14.4 % (11.0-16.0); White Blood Count 5.3 X10*3/uL (4.8-10.8)
[2021-07-03 07:07] LABS: Anion Gap 11 (12-20); Blood Urea Nitrogen 17 mg/dL (9-16); Calcium 8.4 mg/dL (8.4-10.2); Carbon Dioxide 26 mmol/L (22-29); Chloride 107 mmol/L (96-108); Creatinine Clr Calc Pharmacy 87.1; Estimated Glomerular Filt Rate > 60; Glucose Random 98 mg/dL (60-115); Potassium 3.6 mmol/L (3.3-5.1); Sodium 140 mmol/L (135-145)
[2021-07-03 07:42] LABS: B Type Natriuretic Peptide 140 pg/mL (<100)
--- NOTE | 2021-07-03 08:28 | PHA.MEDREC ---
Pharmacy Consult ? Medication Reconciliation Pharmacy has completed the medication reconciliation. There are no remarkable issues for provider's attention. Maryuri Hernandez, ThadD
[2021-07-03] MEDS: Furosemide 40 MG TABLET PO (10:21)
[2021-07-03] MEDS: dilTIAZem HCL CD 120 MG CAP.ER.DEG PO (10:21)
[2021-07-03] MEDS: 0.9 % Sodium Chloride Flush 3 ML SYRINGE IVFLUSH ×3 (10:26→20:11)
--- NOTE | 2021-07-03 10:41 | P.CONCA_ITS ---
History of Present Illness History of Present Illness Date of Service: 07/03/21 Requesting physician: Asaf Islas Chief complaint: Atrial fibrillation, cardiomyopathy. Narrative: 66-year-old female who has no significant past medical history who is presenting with new onset cardiomyopathy. She said while in [place] in April she developed palpitations and was found to have atrial fibrillation. She was started on anticoagulation at that time. She has missed her anticoagulation in between but unsure how many times. Recently she was feeling more palpitations and came to our office. She was in AFib with RVR. Her diltiazem dose was adjusted and an echocardiogram was performed which showed severely reduced ejection fraction. She was asked to come to the emergency department so we can manage her in a timely fashion. She has been feeling tired. She is denying any shortness of breath. She does get some chest pressure when she is doing activities. Family history significant for coronary disease in father but in his 70s. No other medical issues. Does not smoke or drink. No recreational drug abuse. Review of Systems Review of Systems: Feeling fatigued Yes all other systems are reviewed and are negative [facility] Past Medical History Medical History Atrial fibrillation CHF (congestive heart failure) Family History Family History Mother Breast cancer Father Coronary artery disease Surgical History Surgical History History of Social History Social History Patient Tobacco Use Status: Never used Tobacco Advance Directives: No service: No Current occupational status: other Meds Allergies Allergy/AdvReac Type Severity Reaction Status Date / Time No Known Allergies Allergy Verified 03/14/21 15:51 Active Medications: Current Medications Acetaminophen (Acetaminophen 325 Mg Tablet) 650 mg PO Q6H PRN PRN Reason: Pain, Mild (Pain Scale 1-3) Apixaban (Apixaban 5 Mg Tablet) 5 mg PO BID [facility] Last Admin: 07/03/21 10:25 Dose: Not Given Documented by: Diltiazem HCl (Diltiazem Hcl Cd 120 Mg Cap.Er.Deg) 120 mg PO BID [facility]; Protocol Last Admin: 07/03/21 10:21 Dose: 120 mg Documented by: Docusate Sodium (Docusate Sodium 100 Mg Capsule) 100 mg PO DAILY PRN PRN Reason: Constipation Furosemide (Furosemide 40 Mg Tablet) 40 mg PO DAILY [facility]; Protocol Last Admin: 07/03/21 10:21 Dose: 40 mg Documented by: Metoprolol Tartrate (Metoprolol Tartrate 5 Mg/5 Ml Vial) 2.5 mg IVPUSH Q6H PRN PRN Reason: HR >100 Ondansetron HCl (Ondansetron Hcl 4 Mg/2 Ml Vial) 4 mg IVPUSH Q8H PRN PRN Reason: Nausea and Vomiting Sodium Chloride (0.9 % Sodium Chloride Flush 3 Ml Syringe) 3 ml IVFLUSH QSHIFT [facility] Last Admin: 07/03/21 10:26 Dose: 3 ml Documented by: Home Medications Medication Instructions Recorded Confirmed Last Taken Type furosemide 40 mg tablet (Lasix) 40 mg PO DAILY 07/01/21 07/03/21 07/03/21 History multivitamin 1 tab PO DAILY 07/03/21 07/03/21 07/03/21 History Physical Exam Vital Signs: Vital Signs: Last Vital Signs Temp 97.6 F 07/03/21 01:11 Pulse 78 07/03/21 10:21 Resp 15 07/03/21 05:28 BP 118/80 07/03/21 10:21 Pulse Ox 98 07/03/21 05:28 Body Mass Index 32.3 GENERAL APPEARANCE: in no acute distress, pleasant. NECK: no carotid bruit, mild jugular venous distention. SKIN: no suspicious lesions, warm and dry. HEART: no murmurs, irregular rate and rhythm. LUNGS: clear to auscultation bilaterally. ABDOMEN: soft, nontender. EXTREMITIES: Mild edema. PERIPHERAL PULSES: equal. NEUROLOGIC: No gross deficits, AAO X 3 Results Labs and Meds Result diagrams: 07/03/21 06:25 07/03/21 06:25 Lab results: Laboratory Results - last 24 hr 07/02/21 07/02/21 07/02/21 20:07 20:07 20:07 WBC 6.3 RBC 5.31 Hgb 14.9 Hct 46.3 MCV 87.2 MCH 28.1 MCHC 32.2 RDW 14.5 Plt Count 190 MPV 9.6 Immature Gran % (Auto) 0.2 Neut % (Auto) 49.0 Lymph % (Auto) 36.1 [place] % (Auto) 7.9 Eos % (Auto) 6.3 H Baso % (Auto) 0.5 Lymph # (Auto) 2.3 [place] # (Auto) 0.5 Eos # (Auto) 0.4 Baso # (Auto) 0.0 Abs Immat Gran (auto) 0.01 Absolute Neuts (auto) 3.1 Absolute Nucleated RBC 0.000 Nucleated RBC % (auto) 0.0 Sodium 140 Potassium 3.5 Chloride 104 Carbon Dioxide 29 Anion Gap 11 L BUN 21 H Creatinine 0.84 Estim Creat Clear Calc 76.8 Estimated GFR > 60 Random Glucose 97 Calcium 9.2 Troponin I High Sens < 3.5 B-Natriuretic Peptide TSH 3.62 COVID-19 ([facility]) COVID-19 Clin Com 07/03/21 07/03/21 07/03/21 00:55 06:25 06:25 WBC 5.3 RBC 4.89 Hgb 13.6 Hct 42.5 MCV 86.9 MCH 27.8 MCHC 32.0 RDW 14.4 Plt Count 172 MPV 9.9 Immature Gran % (Auto) 0.4 Neut % (Auto) 52.5 Lymph % (Auto) 29.7 [place] % (Auto) 9.1 Eos % (Auto) 7.9 H Baso % (Auto) 0.4 Lymph # (Auto) 1.6 [place] # (Auto) 0.5 Eos # (Auto) 0.4 Baso # (Auto) 0.0 Abs Immat Gran (auto) 0.02 Absolute Neuts (auto) 2.8 Absolute Nucleated RBC 0.000 Nucleated RBC % (auto) 0.0 Sodium 140 Potassium 3.6 Chloride 107 Carbon Dioxide 26 Anion Gap 11 L BUN 17 H Creatinine 0.74 Estim Creat Clear Calc 87.1 Estimated GFR > 60 Random Glucose 98 Calcium 8.4 D Troponin I High Sens B-Natriuretic Peptide TSH COVID-19 ([facility]) Negative COVID-19 Clin Com See Note 07/03/21 06:25 WBC RBC Hgb Hct MCV MCH MCHC RDW Plt Count MPV Immature Gran % (Auto) Neut % (Auto) Lymph % (Auto) [place] % (Auto) Eos % (Auto) Baso % (Auto) Lymph # (Auto) [place] # (Auto) Eos # (Auto) Baso # (Auto) Abs Immat Gran (auto) Absolute Neuts (auto) Absolute Nucleated RBC Nucleated RBC % (auto) Sodium Potassium Chloride Carbon Dioxide Anion Gap BUN Creatinine Estim Creat Clear Calc Estimated GFR Random Glucose Calcium Troponin I High Sens B-Natriuretic Peptide 140 H TSH COVID-19 ([facility]) COVID-19 Clin Com Imaging Radiologist's impression: Impressions Chest X-Ray 07/02/21 19:51 IMPRESSION: Mild interstitial prominence of uncertain etiology. Acutely, this could be seen in the setting of an infectious/inflammatory process of the small airways. No focal consolidation. Assessment and Plan (1) Atrial fibrillation with rapid ventricular response: Status: Acute (2) Cardiomyopathy: Status: Acute Pleasant 66-year-old female who is here for new onset cardiomyopathy on ba [place] of newly diagnosed atrial fibrillation. She was rate controlled diltiazem and was started on Eliquis. Symptomatic Ali she did okay but due to cardiomyopathy she was admitted so we can do HIRA cardioversion on her. She has been taking Eliquis for approximately 4 weeks but she has missed doses in between. Also with cardiomyopathy there is high risk for thrombus formation due to poor flow at times. Keep her NPO going forward. We will plan HIRA cardioversion on her this afternoon. If it is successful then I will start on sotalol. She is agreeable to stay in the hospital for 3 days to have sotalol loading. I think we stop Cardizem because that is not the best drug to use with cardiomyopathy. Would not give IV metoprolol right now. If he we cardiovert and then start sotalol. Mildly overloaded and agree with IV diuretics. Thank you for allowing me to participate in the care of your patient. Please feel free to contact me if you have any questions. Procedures Date of Service Date of Service: 07/03/21
--- NOTE | 2021-07-03 11:30 | MHC.CM.PN ---
Met with patient in regards to discharge planning. Patient lives with her , ambulates independently and had no services prior to coming to the hospital. No services anticipated to be needed because patient is not homebound. PCP is Dr Tiffany Lockett. But patient has never seen him. Patient denies having a HCP. Information provided. Patient is not interested in completing one at this time. Patient has not received any Covid vaccinations. Obs notice explained and signed. Patient's vehicle is in the parking lot and she plans to transport herself home when medically stable. Continue to monitor for d/c needs.
--- NOTE | 2021-07-03 14:22 | PM.EVENT ---
Event Note Date of Service: 07/03/21 Event Note: Patient seen and examined this morning. Heart rate still running between 100-120 range at the time I saw her. Denies any new symptoms any chest pain or shortness of breath or palpitations. Physical exam: Unchanged as per H&P. Assessment and plan: Already coordinated in H&P note. Discussed with Cardiology-plan is to do cardioversion, npo. If patient get cardioversion in the afternoon then may needs to be started on sotalol
--- NOTE | 2021-07-03 14:39 | P.CONAN_ITS ---
HPI - Anesthesia Eval Consult details Narrative: 66 yo female patient for HIRA, cardioversion [facility] Active Problems Active Problems: All Active Problems (Updated 07/03/21 @ 12:22 by Felice Francis MD) Cardiomyopathy (Acute) Atrial fibrillation with rapid ventricular response (Acute) Cough -patient states related to afib with rapid rate ('Feels her heart racing when she has cough). HR 120s on EKG Left leg pain and swelling 03/14/21- seen in ED. DVT ruled out Was recently in [place]- seen in hospital there-unsure of complaint but was apparently started on lopressor, furosemide and eliquis. At somepoint before presenting to ER here 06/20/21, was diagnosed with afib and CHF. Started on diltiazem in ER Shortness of breath with exertion- improved since starting lasix Fatigue Palpitations Past Medical History Medical History Atrial fibrillation CHF (congestive heart failure) Family History Family History Mother Breast cancer Father Coronary artery disease Family history of problems with anesthesia: No Surgical History Surgical History History of History of Problems with Anesthesia: No Social History Social History Patient Tobacco Use Status: Never used Tobacco Use of substances other than those prescribed or required for medical reasons: No Are you DNR?: No Advance Directives: No service: No Current occupational status: other Meds Allergies Allergy/AdvReac Type Severity Reaction Status Date / Time No Known Allergies Allergy Verified 03/14/21 15:51 Active Medications: Current Medications Acetaminophen (Acetaminophen 325 Mg Tablet) 650 mg PO Q6H PRN PRN Reason: Pain, Mild (Pain Scale 1-3) Apixaban (Apixaban 5 Mg Tablet) 5 mg PO BID [facility] Last Admin: 07/03/21 10:25 Dose: Not Given Documented by: Docusate Sodium (Docusate Sodium 100 Mg Capsule) 100 mg PO DAILY PRN PRN Reason: Constipation Furosemide (Furosemide 40 Mg Tablet) 40 mg PO DAILY [facility]; Protocol Last Admin: 07/03/21 10:21 Dose: 40 mg Documented by: Ondansetron HCl (Ondansetron Hcl 4 Mg/2 Ml Vial) 4 mg IVPUSH Q8H PRN PRN Reason: Nausea and Vomiting Sodium Chloride (0.9 % Sodium Chloride Flush 3 Ml Syringe) 3 ml IVFLUSH QSHIFT [facility] Last Admin: 07/03/21 10:26 Dose: 3 ml Documented by: Home Medications Medication Instructions Recorded Confirmed Last Taken Type furosemide 40 mg tablet (Lasix) 40 mg PO DAILY 07/01/21 07/03/21 07/03/21 History multivitamin 1 tab PO DAILY 07/03/21 07/03/21 07/03/21 History Exam Exam Date and Time: July 03, 2021 1439 Height,Weight and Vital Signs: Height 5 ft 6 in Weight 90.718 kg Last Vital Signs Temp 97.6 F 07/03/21 14:10 Pulse 107 H 07/03/21 14:10 Resp 18 07/03/21 14:10 BP 132/84 07/03/21 14:10 Pulse Ox 96 07/03/21 14:10 Pertinent Lab Results Pertinent Lab Results: Laboratory Tests 07/02/21 07/02/21 07/02/21 20:07 20:07 20:07 WBC 6.3 RBC 5.31 Hgb 14.9 Hct 46.3 MCV 87.2 MCH 28.1 MCHC 32.2 RDW 14.5 Plt Count 190 MPV 9.6 Immature Gran % (Auto) 0.2 Neut % (Auto) 49.0 Lymph % (Auto) 36.1 Alexander % (Auto) 7.9 Eos % (Auto) 6.3 H Baso % (Auto) 0.5 Lymph # (Auto) 2.3 Alexander # (Auto) 0.5 Eos # (Auto) 0.4 Baso # (Auto) 0.0 Abs Immat Gran (auto) 0.01 Absolute Neuts (auto) 3.1 Absolute Nucleated RBC 0.000 Nucleated RBC % (auto) 0.0 Sodium 140 Potassium 3.5 Chloride 104 Carbon Dioxide 29 Anion Gap 11 L BUN 21 H Creatinine 0.84 Estim Creat Clear Calc 76.8 Estimated GFR > 60 Random Glucose 97 Calcium 9.2 Troponin I High Sens < 3.5 B-Natriuretic Peptide TSH 3.62 COVID-19 ([facility]) COVID-19 Clin Com 07/03/21 07/03/21 07/03/21 00:55 06:25 06:25 WBC 5.3 RBC 4.89 Hgb 13.6 Hct 42.5 MCV 86.9 MCH 27.8 MCHC 32.0 RDW 14.4 Plt Count 172 MPV 9.9 Immature Gran % (Auto) 0.4 Neut % (Auto) 52.5 Lymph % (Auto) 29.7 Alexander % (Auto) 9.1 Eos % (Auto) 7.9 H Baso % (Auto) 0.4 Lymph # (Auto) 1.6 Alexander # (Auto) 0.5 Eos # (Auto) 0.4 Baso # (Auto) 0.0 Abs Immat Gran (auto) 0.02 Absolute Neuts (auto) 2.8 Absolute Nucleated RBC 0.000 Nucleated RBC % (auto) 0.0 Sodium 140 Potassium 3.6 Chloride 107 Carbon Dioxide 26 Anion Gap 11 L BUN 17 H Creatinine 0.74 Estim Creat Clear Calc 87.1 Estimated GFR > 60 Random Glucose 98 Calcium 8.4 D Troponin I High Sens B-Natriuretic Peptide TSH COVID-19 ([facility]) Negative COVID-19 [facility] See Note 07/03/21 06:25 WBC RBC Hgb Hct MCV MCH MCHC RDW Plt Count MPV Immature Gran % (Auto) Neut % (Auto) Lymph % (Auto) Alexander % (Auto) Eos % (Auto) Baso % (Auto) Lymph # (Auto) Alexander # (Auto) Eos # (Auto) Baso # (Auto) Abs Immat Gran (auto) Absolute Neuts (auto) Absolute Nucleated RBC Nucleated RBC % (auto) Sodium Potassium Chloride Carbon Dioxide Anion Gap BUN Creatinine Estim Creat Clear Calc Estimated GFR Random Glucose Calcium Troponin I High Sens B-Natriuretic Peptide 140 H TSH COVID-19 ([facility]) COVID-19 [facility] Date of Service: 07/02/21 Procedure(s): ECG 12 lead EKG: Test Reason : A-FIB Vent. Rate : 104 BPM ? ? Atrial Rate : 131 BPM ?? P-R Int : 000 ms? QRS Dur : 088 ms ? ? QT Int : 364 ms ? ? ? P-R-T Axes : 000 -11 -01 degrees ?? QTc Int : 478 ms ? Atrial fibrillation with rapid ventricular response Nonspecific T wave abnormality Abnormal ECG When compared with ECG of 20-JUN-2021 15:37, Nonspecific T wave abnormality, improved in Lateral leads Transthoracic Echo: Procedure Date:? 07/02/2021 Procedure Type:? Transthoracic Echocardiogram Symptoms:? I48.19 - Other persistent atrial fibrillation Study Quality: ? Fair ECG Rhythm:? ? ? Sinus ?? ? Conclusions: - The left ventricular systolic function is severely decreased.? The visually estimated ejection fraction is between 15-20%.? ? ? - LV peak longitudinal global longitudinal strain -5.1% (markedly diminished). ? - The left atrium is severely dilated. ? - Suspect PFO by color Doppler.? - There is mild mitral valve regurgitation.? - There is mild tricuspid valve regurgitation. ? ? CXR 07/02/21 Normal appearance of the cardiomediastinal silhouette. Minimal interstitial prominence without focal airspace opacities, pleural effusions or pneumothorax. No acute osseous findings. IMPRESSION: Mild interstitial prominence of uncertain etiology. Acutely, this could be seen in the setting of an infectious/inflammatory process of the small airways. No focal consolidation.? ? ? Airway Mallampati Class: II TM Dist: >3cm Neck ROM: Full Heart: Irregularly irregular Lungs: CTAB Assessment and Plan Assessment Anesthesia Assessment: Anesthesia Plan Discussed and Chart Reviewed Final Anesthetic Review Family History of Problems with Anesthesia: No History of Problems with Anesthesia: No NPO: Yes ASA Class: IV and Emergency Final Preanesthetic Review: No Changes in Pt Med Stat, Meds/Allgs Chart Reviewed, Consent Obtained/Reviewed and Anes Risks/Benef Reviewed Patient Risk: High Procedure Risk: Intermediate Assessment/Block/Sedation in SS: Assess/Block/Sedation- Anesthetic Plan Anesthetic Plan: MAC: Disposition: Standard PACU and Inp. Admit - [facility]
--- NOTE | 2021-07-03 15:30 | CA_ITS ---
Transesophageal Echocardiogram Patient (Last, First, Middle): Lauren Hinojosa, Gender: Female Date of : 1955 Age: 66 Procedure Date: 07/03/2021 Procedure Type: Transesophageal Echocardiogram Location: OR Height: 167.64 cm Weight: 90.72 kg BSA: 2.00 m2 Heart Rate: bpm BP: 132 / 84 mmHg Biometrician: GEORGES Wallis MD: Felice Francis MD Metal Finisher: Felice Francis MD Symptoms: Afib Conclusion: ??? The left ventricular systolic function is severely decreased. The visually estimated ejection fraction is between 10-15%. ??? There is no evidence of a thrombus in the left atrial appendage. Findings Procedure Information Consent was obtained prior to the procedure. The probe was passed with no difficulty. This was a technically good study. Left Ventricle Normal left ventricular cavity size. The left ventricular systolic function is severely decreased. The visually estimated ejection fraction is between 10-15%. Atria There is no evidence of a thrombus in the left atrial appendage. LA is dilated. Aortic Valve There is a normal trileaflet aortic valve. Mitral Valve The mitral valve appears normal. Pulmonic Valve The pulmonic valve is normal. Tricuspid Valve Normal tricuspid valve structure. There is trace tricuspid valve regurgitation. Great Vessels All visible segments of the aorta are normal in size. Venous The inferior vena cava was not well visualized. Pericardium/Pleural There is no evidence of pericardial effusion. Updated by Felice Francis on 04:38 PM with Status of Final Felice Francis MD electronically signed on 07/03/2021 4:38:42 PM with status of Final
--- NOTE | 2021-07-03 15:47 | MHC.SHP ---
Pre-Procedural Eval Section A Date of Service: 07/03/21 The patient is an INPATIENT: Yes The History & Physical has been completed within 30 days and I have reviewed it.: Yes Section B Chief Complaint: Atrial fibrillation, cardiomyopathy. Allergies: Allergies Allergy/AdvReac Type Severity Reaction Status Date / Time No Known Allergies Allergy Verified 03/14/21 15:51 Plan I have reviewed the history and physical and performed a pertinent physical examination on my patient. No changes have occurred unless specified.
--- NOTE | 2021-07-03 16:21 | HO.CARDIVERS ---
Cardioversion Procedure Note Cardioversion Date of Procedure: 07/03/21 Ordering Provider: Felice Francis MD Performing Provider: Felice Francis MD Indication for Procedure: Afib Pre-Op Diagnosis: Afib Post-Op Diagnosis: Afib Performed with Transesophageal Echo: Yes HIRA findings (if HIRA Performed): No SALIMA clot History: 66 female with Afib and cardiomyopathy. Consent: Verbal and Written consent was obtained from the patient before starting. The patient was made aware of the risk of aspiration, injury to esophagus and stroke. Procedure: After consent obtained, defib pads were attached and the patient was sedated by the anesthesia team. Once adequate sedation achieved, 1 shock of 200 J synchronized was given. Patient reverted to sinus rhythm and stayed in sinus rhythm. Left with anesthesia for recovery in stable condition. Complications: None Recommendations: Will start sotalol.
--- NOTE | 2021-07-03 17:31 | PC.NURSE ---
call from dr. juarez questioning post op ekg needed. lauren made aware issue with securing staff to do ekg plan admit patient inpatient. call to [facility] rn, requesting staff [facility] to complete ekg not available. rn made awre plan to come to [facility] no. daniel, plan admit to [facility] now for ekg.
[2021-07-03] MEDS: Potassium Chloride Packet 20 MEQ PACKET PO (17:58)
[2021-07-03 18:11] LABS: Magnesium 2.1 mg/dL (1.6-2.6)
[2021-07-03] MEDS: Sotalol HCL 80 MG TABLET PO (20:10)
--- NOTE | 2021-07-03 22:00 | ECG_ITS ---
Test Reason : PROLONGED QTC Blood Pressure : / mmHG Vent. Rate : 086 BPM Atrial Rate : 086 BPM P-R Int : 162 ms QRS Dur : 088 ms QT Int : 382 ms P-R-T Axes : 048 -13 -03 degrees QTc Int : 457 ms Normal sinus rhythm Nonspecific ST and T wave abnormality Abnormal ECG No significant changes seen Referred By: Callie Gil Electronically Signed By:ALTAGRACIA FISHER MD
[2021-07-04] VITALS (7 sets, daily range): BP systolic 100–118; BP diastolic 57–74; PULSE 75–92; RESP 17–19; TEMP 36–37.1; O2SAT 94–97
[2021-07-04 07:03] LABS: Anion Gap 12 (12-20); Blood Urea Nitrogen 19 mg/dL (9-16); Calcium 8.6 mg/dL (8.4-10.2); Carbon Dioxide 27 mmol/L (22-29); Chloride 106 mmol/L (96-108); Creatinine Clr Calc Pharmacy 82.6; Estimated Glomerular Filt Rate > 60; Glucose Random 90 mg/dL (60-115); Magnesium 2.1 mg/dL (1.6-2.6); Potassium 3.8 mmol/L (3.3-5.1); Sodium 141 mmol/L (135-145)
--- NOTE | 2021-07-04 07:53 | ECG_ITS ---
Test Reason : SOTOLOL USE Blood Pressure : / mmHG Vent. Rate : 074 BPM Atrial Rate : 074 BPM P-R Int : 166 ms QRS Dur : 086 ms QT Int : 456 ms P-R-T Axes : 047 -09 -27 degrees QTc Int : 506 ms Normal sinus rhythm T wave abnormality, consider anterior ischemia Prolonged QT Abnormal ECG When compared with ECG of 03-JUL-2021 22:07, T-wave inversion in Anterior leads is worse Referred By: January Lamb Electronically Signed By:ALTAGRACIA FISHER MD
--- NOTE | 2021-07-04 08:30 | P.CDIC_ITS ---
CDI Concurrent Query Documentation Clarification: PHYSICIAN'S DOCUMENTATION REQUEST Date of Query: 07/04/21829 Patient Name: Lauren Hinojosa Admit Date: 07/03/21 Dear Doctor, A review of the medical record indicates additional documentation may be needed. Please review below and update the documentation accordingly. Clinical Indicators: Risk Factors/Clinical Indicators/Treatments PMH Congestive heart failure BNP 140 Continue home Lasix Note: CHF, no evidence of exacerbation Obtain BMP EF 15-20 % Please provide further specificity regarding the most likely type and acuity of CHF you are evaluating, treating, or monitoring. Examples include: Type: * Systolic * Diastolic * Combined Systolic/Diastolic * Other ? please specify * Unable to determine Acuity: * Acute * Chronic * Acute on chronic * Unable to determine Use of terms such as suspected, likely, concern for, or probable (associated with a specific diagnosis that is being evaluated, monitored, or treated as if it exists) are acceptable and can be coded in the inpatient setting, when documented at the time of discharge. Thank you, Marie Chavez [facility], CDIS Extension: [phone] Please use your independent medical judgment in providing your response. THIS QUERY IS PART OF THE PERMANENT MEDICAL RECORD Provider Response: Other Other Diagnosis: chf systolic ch -stable.
[2021-07-04] MEDS: 0.9 % Sodium Chloride Flush 3 ML SYRINGE IVFLUSH ×2 (10:18→16:47)
[2021-07-04] MEDS: Furosemide 20 MG TABLET PO (10:18)
[2021-07-04] MEDS: Apixaban 5 MG TABLET PO ×2 (10:18→21:23)
[2021-07-04] MEDS: Potassium Chloride ER 20 MEQ TAB.ER.PRT 40 MEQ PO (10:18)
--- NOTE | 2021-07-04 11:48 | HO.PM.IMPN ---
Subjective Subjective Date of Service: 07/04/21 Interval History: afib , ch systolic chf Review of Systems Patient denies any chest pain or shortness of breath or abdominal pain or fever chills No weakness or numbness. Physical Exam Vital Signs: Vital Signs: Last Vital Signs Temp 97.3 F 07/04/21 08:00 Pulse 76 07/04/21 08:00 Resp 17 07/04/21 08:00 BP 113/74 07/04/21 08:00 Pulse Ox 96 07/04/21 08:00 Body Mass Index 32.3 Appearance: not in distress.? Eyes: Pupils equal, round and reactive to light.? Sclera nonicteric.? cvs: rrr, [id number] , no murmur res: clear to auscultation ,no rhonchii or wheezing abd: no rebound or guarding ,nt, bs present. ext pulses present , no cyanosis ,Gait well balanced well coordinated. neuro: axo3 , nonfocal. Objective Data Active Medications Acetaminophen (Acetaminophen 325 Mg Tablet) 650 mg PO Q6H PRN PRN Reason: Pain, Mild (Pain Scale 1-3) Acetaminophen (Acetaminophen 325 Mg Tablet) 650 mg PO ONCE PRN PRN Reason: Pain, Mild (Pain Scale 1-3) Apixaban (Apixaban 5 Mg Tablet) 5 mg PO BID [facility] Last Admin: 07/04/21 10:18 Dose: 5 mg Documented by: BREE Docusate Sodium (Docusate Sodium 100 Mg Capsule) 100 mg PO DAILY PRN PRN Reason: Constipation Furosemide (Furosemide 20 Mg Tablet) 20 mg PO DAILY [facility]; Protocol Last Admin: 07/04/21 10:18 Dose: 20 mg Documented by: BREE Sodium Chloride (0.9 % Sodium Chloride Flush 3 Ml Syringe) 3 ml IVFLUSH QSHIFT [facility] Last Admin: 07/04/21 10:18 Dose: 3 ml Documented by: BREE Labs CBC & Chem 7: 07/03/21 06:25 07/04/21 05:37 Labs: Laboratory Results - last 24 hr 07/03/21 07/04/21 07/04/21 06:25 05:37 08:25 Anion Gap 12 Estim Creat Clear Calc 82.6 Estimated GFR > 60 Random Glucose 90 Calcium 8.6 9.0 Magnesium 2.1 2.1 Assessment and Plan (1) Atrial fibrillation with rapid ventricular response: Status: Acute (2) Cardiomyopathy: Status: Acute Assessment and Plan: 66-year-old female with past medical history of recently diagnosed AFib presents to the hospital for cardioversion after echocardiogram showed an ejection fraction of 15-20% 1. AFib with RVR - heart rate of 104 - asymptomatic Patient status post cardioversion, now in normal sinus rhythm, patient was started on sotalol yesterday-this morning QTC seems to be prolonged in 500 range. So startle all stopped. Potassium is borderline around 3.8 range we have given 40 mg and potassium, magnesium is 2.1 Plan is to repeat potassium and EKG in the afternoon and may need to start sotalol known as if QTC comes in 450 range continue Eliquis , may need to start sotalol as above depending upon EKG and potassium levels. 2. history of CHF chronic -systolic. - no evidence of volume overload or CHF exacerbation - continue home Lasix - will obtain BMP - cardiology on consult DVT prophylaxis:? Eliquis Quality Stroke Does the patient have a stroke diagnosis?: No VTE Prior VTE?: No VTE Risk Level:: Medical - moderate - high VTE Device Contraindication: Treatment Not Indicated VTE Drug Contraindication: N/A - Med Ordered
--- NOTE | 2021-07-04 12:04 | P.PNCA_ITS ---
Subjective Subjective Date of Service: 07/05/21 Interval history: feeling good. Sotalol was held because QTc >500 Physical Exam Vital Signs: Last Vital Signs Temp 97.3 F 07/04/21 08:00 Pulse 76 07/04/21 08:00 Resp 17 07/04/21 08:00 BP 113/74 07/04/21 08:00 Pulse Ox 96 07/04/21 08:00 Body Mass Index 32.3 GENERAL APPEARANCE: in no acute distress, pleasant. NECK: no carotid bruit, no jugular venous distention. SKIN: no suspicious lesions, warm and dry. HEART: no murmurs, regular rate and rhythm. LUNGS: clear to auscultation bilaterally. ABDOMEN: soft, nontender. EXTREMITIES: no edema. PERIPHERAL PULSES: equal. NEUROLOGIC: No gross deficits, AAO X 3 Results Labs and Meds Result diagrams: 07/03/21 06:25 07/04/21 16:58 Lab results: Laboratory Results - last 24 hr 07/03/21 07/04/21 07/04/21 06:25 05:37 08:25 Sodium 141 Potassium 3.8 Chloride 106 Carbon Dioxide 27 Anion Gap 12 BUN 19 H Creatinine 0.78 Estim Creat Clear Calc 82.6 Estimated GFR > 60 Random Glucose 90 Calcium 8.6 9.0 Magnesium 2.1 2.1 Progress Note: A&P Assessment and plan (1) Atrial fibrillation with rapid ventricular response: Status: Acute (2) Cardiomyopathy: Status: Acute Assessment and Plan: 66-year-old female with atrial fibrillation and tachycardia induced cardiomyopathy. She underwent HIRA cardioversion successfully. He started on sotalol but her QTC increased to 500. Sotalol has been discontinued. We will monitor potassium closely and replete accordingly. Repeat EKG in the evening and QTC is improving and below for 50 then I think we can resume sotalol at 40 mg twice a day. She will need EKG 2 hours after sotalol dose to make sure that QTC is stable. If QTC increase more than 15% or exceeds 500 at any stage then sotalol should be discontinued and our service should be contacted. Thank you for allowing me to participate in the care of your patient. Please feel free to contact me if you have any questions. Fall Risk Details Current Medications: Current Medications Acetaminophen (Acetaminophen 325 Mg Tablet) 650 mg PO Q6H PRN PRN Reason: Pain, Mild (Pain Scale 1-3) Acetaminophen (Acetaminophen 325 Mg Tablet) 650 mg PO ONCE PRN PRN Reason: Pain, Mild (Pain Scale 1-3) Apixaban (Apixaban 5 Mg Tablet) 5 mg PO BID [facility] Last Admin: 07/04/21 10:18 Dose: 5 mg Documented by: Docusate Sodium (Docusate Sodium 100 Mg Capsule) 100 mg PO DAILY PRN PRN Reason: Constipation Furosemide (Furosemide 20 Mg Tablet) 20 mg PO DAILY [facility]; Protocol Last Admin: 07/04/21 10:18 Dose: 20 mg Documented by: Sodium Chloride (0.9 % Sodium Chloride Flush 3 Ml Syringe) 3 ml IVFLUSH QSHIFT [facility] Last Admin: 07/04/21 10:18 Dose: 3 ml Documented by: Time Spent With Patient Time: Total time spent is greater than 50% in coordination of care (as documented) at patient's floor/unit and/or counseling patient: Time with patient: 15 - 24 minutes Progress Note: Quality Stroke Does the patient have a stroke diagnosis?: No Procedures Date of Service Date of Service: 07/05/21
--- NOTE | 2021-07-04 12:16 | HO.POSTANES ---
Post Anesthesia Evaluation Post Anesthesia Evaluation Vital Signs: Vital Signs Temp Pulse Resp BP Pulse Ox 07/04/21 12:00 97.9 F 84 19 97 07/04/21 08:00 97.3 F 76 17 113/74 96 07/04/21 04:00 96.8 F 75 18 100/57 L 94 Anesthesia: Monitored Mental Status: Awake Pain Control: Satisfactory Nausea/Vomiting: None Hydration: Adequate Anesthesia-Related Issues: No Anes. Related Issues
--- NOTE | 2021-07-04 17:00 | ECG_ITS ---
Test Reason : qtc prolong Blood Pressure : / mmHG Vent. Rate : 083 BPM Atrial Rate : 083 BPM P-R Int : 156 ms QRS Dur : 086 ms QT Int : 376 ms P-R-T Axes : 020 -09 003 degrees QTc Int : 441 ms Sinus rhythm with Premature supraventricular complexes Nonspecific ST and T wave abnormality Abnormal ECG T wave inversion less evident in Anterior leads Referred By: Asaf Islas Electronically Signed By:ALTAGRACIA FISHER MD
[2021-07-04 17:26] LABS: Potassium 4.2 mmol/L (3.3-5.1)
[2021-07-04] MEDS: Sotalol HCL 80 MG TABLET 40 MG PO (21:23)
--- NOTE | 2021-07-04 22:00 | ECG_ITS ---
Test Reason : SOTALOL Blood Pressure : / mmHG Vent. Rate : 081 BPM Atrial Rate : 081 BPM P-R Int : 160 ms QRS Dur : 090 ms QT Int : 398 ms P-R-T Axes : 043 -03 -13 degrees QTc Int : 462 ms Normal sinus rhythm Nonspecific T wave abnormality Abnormal ECG No significant changes seen Referred By: Asaf Islas Electronically Signed By:ALTAGRACIA FISHER MD
[2021-07-05] VITALS (11 sets, daily range): BP systolic 107–133; BP diastolic 63–81; PULSE 71–86; RESP 16–18; TEMP 36.1–36.9; O2SAT 95–98
[2021-07-05] MEDS: Furosemide 20 MG TABLET PO (09:04)
[2021-07-05] MEDS: 0.9 % Sodium Chloride Flush 3 ML SYRINGE IVFLUSH ×3 (09:04→21:17)
[2021-07-05] MEDS: Apixaban 5 MG TABLET PO ×2 (09:04→21:16)
[2021-07-05] MEDS: Sotalol HCL 80 MG TABLET 40 MG PO (09:04)
--- NOTE | 2021-07-05 10:00 | ECG_ITS ---
Test Reason : on stotolol Blood Pressure : / mmHG Vent. Rate : 086 BPM Atrial Rate : 086 BPM P-R Int : 152 ms QRS Dur : 086 ms QT Int : 366 ms P-R-T Axes : 041 -01 044 degrees QTc Int : 437 ms Sinus rhythm with Premature supraventricular complexes Nonspecific ST and T wave abnormality Abnormal ECG No significant changes seen Referred By: Asaf Islas Electronically Signed By:ALTAGRACIA FISHER MD
--- NOTE | 2021-07-05 10:40 | PM.PNCARD ---
Subjective Subjective Date of Service: 07/05/21 Interval history: Feeling better. She was given 40 mg of sotalol and QTC is stable. She got the 2nd dose this morning and will repeat EKG in 2 hours. Physical Exam Vital Signs: Last Vital Signs Temp 97.3 F 07/05/21 07:34 Pulse 81 07/05/21 09:04 Resp 18 07/05/21 07:34 BP 123/81 07/05/21 09:04 Pulse Ox 95 07/05/21 07:34 Body Mass Index 32.3 GENERAL APPEARANCE: in no acute distress, pleasant. NECK: no carotid bruit, no jugular venous distention. SKIN: no suspicious lesions, warm and dry. HEART: no murmurs, regular rate and rhythm. LUNGS: clear to auscultation bilaterally. ABDOMEN: soft, nontender. EXTREMITIES: no edema. PERIPHERAL PULSES: equal. NEUROLOGIC: No gross deficits, AAO X 3 Results Labs and Meds Result diagrams: 07/03/21 06:25 07/04/21 16:58 Lab results: Laboratory Results - last 24 hr 07/04/21 16:58 Potassium 4.2 Progress Note: A&P Assessment and plan (1) Cardiomyopathy: Status: Acute (2) PAF (paroxysmal atrial fibrillation): Status: Acute Assessment and Plan: 66-year-old female with atrial fibrillation and tachycardia induced cardiomyopathy. She is status post cardioversion. We started on sotalol 40 mg twice a day. She has been stable after the 1st dose and EKG 2 hours after 2nd dose is currently pending. If QTc increases more than 15% or exceeds 500 sotalol should be discontinued. Adding spironolactone 12.5 mg once a day because that will help improve the potassium level because hypokalemia can be an issue with sotalol. Thank you for allowing me to participate in the care of your patient. Please feel free to contact me if you have any questions. Fall Risk Details Current Medications: Current Medications Acetaminophen (Acetaminophen 325 Mg Tablet) 650 mg PO Q6H PRN PRN Reason: Pain, Mild (Pain Scale 1-3) Acetaminophen (Acetaminophen 325 Mg Tablet) 650 mg PO ONCE PRN PRN Reason: Pain, Mild (Pain Scale 1-3) Apixaban (Apixaban 5 Mg Tablet) 5 mg PO BID [facility] Last Admin: 07/05/21 09:04 Dose: 5 mg Documented by: Docusate Sodium (Docusate Sodium 100 Mg Capsule) 100 mg PO DAILY PRN PRN Reason: Constipation Furosemide (Furosemide 20 Mg Tablet) 20 mg PO DAILY [facility]; Protocol Last Admin: 07/05/21 09:04 Dose: 20 mg Documented by: Sodium Chloride (0.9 % Sodium Chloride Flush 3 Ml Syringe) 3 ml IVFLUSH QSHIFT [facility] Last Admin: 07/05/21 09:04 Dose: 3 ml Documented by: Sotalol HCl (Sotalol Hcl 80 Mg Tablet) 40 mg PO Q12H [facility] Last Admin: 07/05/21 09:04 Dose: 40 mg Documented by: Time Spent With Patient Time: Total time spent is greater than 50% in coordination of care (as documented) at patient's floor/unit and/or counseling patient: Time with patient: 15 - 24 minutes Progress Note: Quality Stroke Does the patient have a stroke diagnosis?: No Procedures Date of Service Date of Service: 07/05/21
--- NOTE | 2021-07-05 11:25 | P.PNIM_ITS ---
Subjective Subjective Date of Service: 07/05/21 Interval History: afib s/p cardioversion , on sotalol Review of Systems Denies any chest pain or shortness of breath or abdominal pain or fever chills or cough or phlegm. Physical Exam Vital Signs: Vital Signs: Last Vital Signs Temp 97.3 F 07/05/21 07:34 Pulse 81 07/05/21 09:04 Resp 18 07/05/21 07:34 BP 123/81 07/05/21 09:04 Pulse Ox 95 07/05/21 07:34 Body Mass Index 32.3 Appearance:? not in distress.? Eyes: Pupils equal, round and reactive to light.? cvs: rrr, [id number] , no murmur res: clear to auscultation ,no rhonchii or wheezing abd: no rebound or guarding ,nt, bs present. ext pulses present , no cyanosis ,Gait well balanced well coordinated. neuro: axo3 , nonfocal. Objective Data Active Medications Acetaminophen (Acetaminophen 325 Mg Tablet) 650 mg PO Q6H PRN PRN Reason: Pain, Mild (Pain Scale 1-3) Acetaminophen (Acetaminophen 325 Mg Tablet) 650 mg PO ONCE PRN PRN Reason: Pain, Mild (Pain Scale 1-3) Apixaban (Apixaban 5 Mg Tablet) 5 mg PO BID [facility] Last Admin: 07/05/21 09:04 Dose: 5 mg Documented by: JENNIFER Docusate Sodium (Docusate Sodium 100 Mg Capsule) 100 mg PO DAILY PRN PRN Reason: Constipation Furosemide (Furosemide 20 Mg Tablet) 20 mg PO DAILY [facility]; Protocol Last Admin: 07/05/21 09:04 Dose: 20 mg Documented by: JENNIFER Sodium Chloride (0.9 % Sodium Chloride Flush 3 Ml Syringe) 3 ml IVFLUSH QSHIFT [facility] Last Admin: 07/05/21 09:04 Dose: 3 ml Documented by: JENNIFER Sotalol HCl (Sotalol Hcl 80 Mg Tablet) 40 mg PO Q12H [facility] Last Admin: 07/05/21 09:04 Dose: 40 mg Documented by: JENNIFER Spironolactone (Spironolactone 25 Mg Tablet) 12.5 mg PO DAILY [facility]; Protocol Labs CBC & Chem 7: 07/03/21 06:25 10/08/21 16:58 Assessment and Plan (1) PAF (paroxysmal atrial fibrillation): Status: Acute (2) Atrial fibrillation with rapid ventricular response: Status: Acute (3) Cardiomyopathy: Status: Acute Assessment and Plan: 66-year-old female with past medical history of recently diagnosed AFib presents to the hospital for cardioversion after echocardiogram showed an ejection fraction of 15-20% 1. AFib with RVR - heart rate of 104 - asymptomatic Patient status post cardioversion, now in normal sinus rhythm, patient was started on sotalol yesterday-this morning QTC seems to be prolonged in 500 range.? So startle all stopped. Potassium 4.2 yesterday, magnesium is 2.1 Plan is to repeat potassium and EKG in the afternoon and may need to start sotalol known as if QTC comes in 450 range ?continue Eliquis , patient needs to moniter ekg and tele -sotalol protocol. ekg pending , will adjust sotalol according to qtc , labs repated ordered. 2. history of CHF chronic -systolic. - no evidence of volume overload or CHF exacerbation - continue home Lasix,aldactone - will obtain BMP - cardiology eval noted. DVT prophylaxis:? Eliquis Quality Stroke Does the patient have a stroke diagnosis?: No VTE Prior VTE?: No VTE Risk Level:: Medical - moderate - high VTE Device Contraindication: Treatment Not Indicated VTE Drug Contraindication: N/A - Med Ordered
[2021-07-05 12:20] LABS: Anion Gap 12 (12-20); Blood Urea Nitrogen 20 mg/dL (9-16); Calcium 9.3 mg/dL (8.4-10.2); Carbon Dioxide 30 mmol/L (22-29); Chloride 104 mmol/L (96-108); Creatinine Clr Calc Pharmacy 76.8; Estimated Glomerular Filt Rate > 60; Glucose Random 91 mg/dL (60-115); Magnesium 2.1 mg/dL (1.6-2.6); Potassium 5.5 mmol/L (3.3-5.1); Sodium 140 mmol/L (135-145)
--- NOTE | 2021-07-05 12:33 | PC.NURSE ---
Per MD's verbal order this morning, EKG was not completed prior to administration of PO Sotalol. However, per MD order and per policy, EKG was obtained two hours after administration of PO Sotalol. Results of EKG were communicated with MD.
[2021-07-05] MEDS: Spironolactone 25 MG TABLET 12.5 MG PO (12:41)
[2021-07-05] MEDS: Sodium Polystyrene Sulfon/Sorb 15 GM/60 ML ORAL.SUSP PO (17:38)
[2021-07-05 19:16] LABS: Potassium 4.9 mmol/L (3.3-5.1)
[2021-07-05] MEDS: Metoprolol Tartrate 25 MG TABLET PO (21:16)
[2021-07-06 03:24] VITALS: BP 91/59; PULSE 75; RESP 18; TEMP 36.3; O2SAT 97
[2021-07-06] MEDS: Acetaminophen 325 MG TABLET 650 MG PO (03:36)
--- NOTE | 2021-07-06 06:25 | PC.NURSE ---
EKG done on pt @ 7pm two hours prior to PM Sotalol dose per policy. QTc found to be 437. Cardiology notified. Telephone order received from cardiology to discontinue Sotalol and start pt on 25mg Metoprolol BID. First dose of 25mg Metoprolol given at bedtime.
[2021-07-06 07:53] VITALS: BP 117/77; PULSE 86; RESP 18; TEMP 36.5; O2SAT 97
[2021-07-06 08:18] VITALS: BP 117/77; PULSE 86
[2021-07-06] MEDS: Metoprolol Tartrate 25 MG TABLET PO (08:18)
[2021-07-06] MEDS: 0.9 % Sodium Chloride Flush 3 ML SYRINGE IVFLUSH (08:18)
[2021-07-06] MEDS: Apixaban 5 MG TABLET PO (08:18)
--- NOTE | 2021-07-06 10:49 | PM.DS ---
DS: Providers Provider Date of Service: 07/06/21 Date of admission: 07/03/21 00:19 Date of discharge: 07/06/21 Primary care physician: None Physician Consults: 07/03/21 01:25 Consult to Cardiology Routine Consulting Provider: Felice Francis Reason for consultation: cardioversion Has provider been notified: No DS: Diagnosis Discharge Diagnosis (1) PAF (paroxysmal atrial fibrillation): Status: Acute (2) Atrial fibrillation with rapid ventricular response: Status: Acute (3) Cardiomyopathy: Status: Acute DS: Summary Hospital Course Hospital Course: 66-year-old female with past medical history of recently diagnosed AFib presents to the hospital for cardioversion after echocardiogram showed an ejection fraction of 15-20%. hospital course:66-year-old female with past medical history of recently diagnosed AFib presents to the hospital for cardioversion after echocardiogram showed an ejection fraction of 15-20%-s/p cardioversion-electrolytes seems acceptable range. Patient was started on sotalol but could not tolerate sotalol QTC was fluctuating above the acceptable range. Cardio recommended to start her on metoprolol. Hyperkalemia probably related to potassium replacement. Improved with Kayexalate. Chronic systolic heart failure history: Continue home Lasix. Further management outpatient as per Cardiology. Above management discussed with the patient in detail length she understand and in agreement with the above plan, time spent 50 minutes and 50% time spent on counseling. Significant findings: As above. Procedures performed: None. Treatment and response: As above. Complications: None. Time Spent with Patient Time attestation: Total time spent providing and/or coordinating discharge services: Discharge coordination time: Greater than 30 minutes Quality: Stroke Does the patient have a stroke diagnosis?: No Physical Exam Vital Signs: Vital Signs: Last Vital Signs Temp 97.7 F 07/06/21 07:53 Pulse 86 07/06/21 08:18 Resp 18 07/06/21 07:53 BP 117/77 07/06/21 08:18 Pulse Ox 97 07/06/21 07:53 Body Mass Index 32.3 Appearance:? not in distress.? Eyes: Pupils equal, round and reactive to light.? cvs: rrr, [id number] , no murmur res: clear to auscultation ,no rhonchii or wheezing abd: no rebound or guarding ,nt, bs present. ext pulses present , no cyanosis ,Gait well balanced well coordinated. neuro: axo3 , nonfocal. DS: Data Data Completed and Pending Labs on day of discharge: Laboratory Results - last 24 hr 07/05/21 07/05/21 11:53 19:02 Sodium 140 Potassium 5.5 H D 4.9 Chloride 104 Carbon Dioxide 30 H Anion Gap 12 BUN 20 H Creatinine 0.84 Estim Creat Clear Calc 76.8 Estimated GFR > 60 Random Glucose 91 Calcium 9.3 Magnesium 2.1 Discharge Plan Discharge Patient Disposition: Home, Self-Care Discharge Diagnosis: afib s/p cardioversion Referrals: Physician,None [Primary Care Provider] - 1 Week Discharge Medications: New metoprolol succinate [Toprol XL] 25 mg tablet extended release 24 hr 12.5 mg PO DAILY Qty: 30 RF: 0 Continued hydrocortisone 2.5 % ointment 1 appl topical QID PRN (Reason: eczema) Qty: 454 RF: 0 multivitamin Tablet 1 tab PO DAILY RF: 0 furosemide [Lasix] 40 mg tablet 40 mg PO DAILY RF: 0 Eliquis 5 mg tablet 5 mg PO BID 30 Days Qty: 60 RF: 5 Discontinued diltiazem HCl [Cardizem CD] 120 mg capsule,extended release 24hr 120 mg PO BID 30 Days Qty: 60 RF: 0 Discharge Orders: Discharge Order (Routine); Ordered 07/06/21 Ordered By: Asaf Islas Diet: advance to usual diet, low fat, low cholesterol and low salt diet Activity on Discharge: As tolerated Stand Alone Forms: Patient Portal Discharge page Care Plan Goals: 66-year-old female with past medical history of recently diagnosed AFib presents to the hospital for cardioversion after echocardiogram showed an ejection fraction of 15-20%-s/p cardioversion-electrolytes seems acceptable range. Patient was started on sotalol but could not tolerate sotalol QTC was fluctuating above the acceptable range. Cardio recommended to start her on metoprolol. Hyperkalemia probably related to potassium replacement. Improved with Kayexalate. Please check BMP with primary care provider outpatient in 1 week. Further management outpatient as per Cardiology. Health Concerns: As above. Plan of Treatment: As above. Assessment: As above.
--- NOTE | 2021-07-06 10:54 | P.PNCA_ITS ---
Subjective Subjective Date of Service: 07/06/21 Interval history: Feeling better. In sinus rhythm. She did not tolerate sotalol and has diffuse T-wave changes. Also QTC changed significantly after sotalol and I think it is not safe to continue it. She was started on metoprolol 25 mg twice a day last night. Also had hyperkalemia with spironolactone and has been stopped. Physical Exam Vital Signs: Last Vital Signs Temp 97.7 F 07/06/21 07:53 Pulse 86 07/06/21 08:18 Resp 18 07/06/21 07:53 BP 117/77 07/06/21 08:18 Pulse Ox 97 07/06/21 07:53 Body Mass Index 32.3 GENERAL APPEARANCE: in no acute distress, pleasant. NECK: no carotid bruit, no jugular venous distention. SKIN: no suspicious lesions, warm and dry. HEART: no murmurs, regular rate and rhythm. LUNGS: clear to auscultation bilaterally. ABDOMEN: soft, nontender. EXTREMITIES: no edema. PERIPHERAL PULSES: equal. NEUROLOGIC: No gross deficits, AAO X 3 Results Labs and Meds Result diagrams: 07/03/21 06:25 07/05/21 19:02 Lab results: Laboratory Results - last 24 hr 07/05/21 07/05/21 11:53 19:02 Sodium 140 Potassium 5.5 H D 4.9 Chloride 104 Carbon Dioxide 30 H Anion Gap 12 BUN 20 H Creatinine 0.84 Estim Creat Clear Calc 76.8 Estimated GFR > 60 Random Glucose 91 Calcium 9.3 Magnesium 2.1 Progress Note: A&P Assessment and plan (1) PAF (paroxysmal atrial fibrillation): Status: Acute (2) Cardiomyopathy: Status: Acute Assessment and Plan: Pleasant 66 year female who presented with atrial fibrillation with rapid ventricular response and likely tachycardia induced cardiomyopathy. She has been cardioverted and is in sinus rhythm. We tried sotalol but she had significant QT changes and has diffuse T-wave inversions on EKG. I think we should not use sotalol in her. I have started on Toprol XL 25 mg once a day. Cardizem should be stopped at discharge. She should continue Eliquis 5 mg twice a day. She can go home with 20 mg p.o. Lasix. We will bring her in the office in 1 week and check EKG. If stable will start her on amiodarone. She will need referral to EP for AFib ablation. She had some chest discomfort which was atypical. We will see how she does once she is out of atrial fibrillation and if she has any persistent symptoms then we will pursue exercise stress test on her. Thank you for allowing me to participate in the care of your patient. Please feel free to contact me if you have any questions. Fall Risk Details Current Medications: Current Medications Acetaminophen (Acetaminophen 325 Mg Tablet) 650 mg PO Q6H PRN PRN Reason: Pain, Mild (Pain Scale 1-3) Last Admin: 07/06/21 03:36 Dose: 650 mg Documented by: Acetaminophen (Acetaminophen 325 Mg Tablet) 650 mg PO ONCE PRN PRN Reason: Pain, Mild (Pain Scale 1-3) Apixaban (Apixaban 5 Mg Tablet) 5 mg PO BID [facility] Last Admin: 07/06/21 08:18 Dose: 5 mg Documented by: Docusate Sodium (Docusate Sodium 100 Mg Capsule) 100 mg PO DAILY PRN PRN Reason: Constipation Metoprolol Tartrate (Metoprolol Tartrate 25 Mg Tablet) 25 mg PO BID [facility]; Protocol Last Admin: 07/06/21 08:18 Dose: 25 mg Documented by: Sodium Chloride (0.9 % Sodium Chloride Flush 3 Ml Syringe) 3 ml IVFLUSH [facility] Last Admin: 07/06/21 08:18 Dose: 3 ml Documented by: Time Spent With Patient Time: Total time spent is greater than 50% in coordination of care (as docume nted) at patient's floor/unit and/or counseling patient: Time with patient: 15 - 24 minutes Progress Note: Quality Stroke Does the patient have a stroke diagnosis?: No Procedures Date of Service Date of Service: 07/06/21
[2021-07-06 11:09] VITALS: BP 107/75; PULSE 76; RESP 18; TEMP 36.6; O2SAT 95
--- NOTE | 2021-07-06 11:48 | MHC.CM.PN ---
order for home, self-care, CM acknoweldged.
== END 2021-07-06 12:15 | disposition home or self-care (01) | DRG 201 ==
LOC: HO.ED 23:29 → HO.EDOVER 07-03 02:04 → HO.IMC 07-03 13:45
PROVIDERS: Internal Medicine Cardiovascular Disease; Physician Assistant Medical; Admitting Provider Internal Medicine; Emergency Provider Internal Medicine; PCP Internal Medicine; Visit Provider Internal Medicine
PROC: 5A2204Z Restoration of Cardiac Rhythm, Single (ICD-10-PCS; principal; 2021-07-03 15:30)
DX: I48.0 Paroxysmal atrial fibrillation (principal); I42.9 Cardiomyopathy, unspecified; E87.5 Hyperkalemia; I50.22 Chronic systolic (congestive) heart failure; I48.20 Chronic atrial fibrillation, unspecified; K59.00 Constipation, unspecified; I45.81 Long QT syndrome; T44.7X5A Adverse effect of beta-adrenoreceptor antagonists, initial encounter; Y92.239 Unspecified place in hospital as the place of occurrence of the external cause; Z79.01 Long term (current) use of anticoagulants; Z82.49 Family history of ischemic heart disease and other diseases of the circulatory system; Z79.899 Other long term (current) drug therapy; Z20.822 Contact with and (suspected) exposure to COVID-19
CPT/HCPCS: 36415; 71046; 80048; 82310; 83735; 83880; 84132; 84443; 84484; 85025; 87635; 92960; 93005; 93312; 99284; 99285; J3010

== ENCOUNTER → 2021-07-15 12:53 | Outpatient (BNVA) | payer OTHER, SELFPAY | PROVIDERS: PCP Internal Medicine; Referring Provider Internal Medicine; Visit Provider Nurse Practitioner Family | DX: I48.91 Unspecified atrial fibrillation (principal); I42.9 Cardiomyopathy, unspecified | CPT/HCPCS: 93005 ==

== ENCOUNTER → 2021-07-22 09:09 | Outpatient (BNVA) | payer OTHER, SELFPAY | PROVIDERS: PCP Internal Medicine; Referring Provider Internal Medicine; Visit Provider Nurse Practitioner Family ==

== ENCOUNTER → 2021-07-31 13:33 | Outpatient (BNVA) | payer OTHER, SELFPAY | PROVIDERS: PCP Internal Medicine; Referring Provider Internal Medicine; Visit Provider Internal Medicine Cardiovascular Disease | DX: I48.0 Paroxysmal atrial fibrillation (principal); I42.9 Cardiomyopathy, unspecified | CPT/HCPCS: 93005; 99212 ==

== ENCOUNTER → 2021-10-02 12:42 | Outpatient (REF) | payer OTHER, SELFPAY ==
--- NOTE | 2021-10-02 08:43 | ECG_ITS ---
Hook-up date: 2021-10-02 14:41:00 Duration: 47:59:00 Test Indications: palpitations Medications: [id number] QRS complexes 29 Ventricular ectopics which represent <1 % of total QRS comp. 6 Supraventricular ectopics which represent <1 % of total QRS comp. * Paced QRS complexs which represent % of total QRS comp. VENTRICULAR ECTOPY 29 Isolated 0 Bigeminal Cycles 0 Couplets 0 Runs 0 Beats in Runs * Beats LONGEST at * BPM at :: -- * Beats FASTEST at * BPM at :: -- SUPRAVENTRICULAR ECTOPY 4 Isolated 1 Couplets 0 Runs 0 Beats in Runs * Beats LONGEST at * BPM at :: -- * Beats FASTEST at * BPM at :: -- HEART RATES 68 MIN at 05:45:59 2021-10-03 91 AVG 137 MAX at 09:27:07 2021-10-03 LONGEST RR 0.9040 secs at 05:45:59 2021-10-03 S-T LEVELS Channel 1 - 128 mm at 14:41:00 2021-10-02 - 128 mm at 14:41:00 2021-10-02 Channel 2 - 128 mm at 14:41:00 2021-10-02 - 128 mm at 14:41:00 2021-10-02 Channel 3 - 128 mm at 03:40:01 -- - 128 mm at 03:40:01 Basic rhythm Normal sinus rhythm No long pause or profound bradycardia Rare Premature ventricular complexes Patient did not report any symptoms in the diary Referred By: Antonia Mendenhall Overread By: LEONILA OCAMPO MD
== END ==
LOC: HO.CARD 12:42
PROVIDERS: PCP Internal Medicine; Referring Provider Internal Medicine; Visit Provider Nurse Practitioner Family
DX: R00.2 Palpitations (principal)
CPT/HCPCS: 93005; 93226; 99212

== ENCOUNTER → 2021-10-02 | Outpatient (REF) | payer OTHER, SELFPAY | LOC: HO.CARD | PROVIDERS: Visit Provider Nurse Practitioner Family | DX: Z13.89 Encounter for screening for other disorder (principal) ==

== ENCOUNTER → 2021-11-25 13:00 | Outpatient (BNVA) | payer OTHER, SELFPAY | PROVIDERS: PCP Internal Medicine; Referring Provider Internal Medicine; Visit Provider Nurse Practitioner Family | DX: I48.0 Paroxysmal atrial fibrillation (principal); I42.9 Cardiomyopathy, unspecified; Z98.890 Other specified postprocedural states; Z86.79 Personal history of other diseases of the circulatory system | CPT/HCPCS: 93005; 99212 ==

== ENCOUNTER → 2021-12-11 12:49 | Outpatient (REF) | payer OTHER, SELFPAY | LOC: HO.SL 12:49 | PROVIDERS: Visit Provider Nurse Practitioner Family | DX: Z13.89 Encounter for screening for other disorder (principal) ==

== ENCOUNTER → 2022-02-12 14:37 | Outpatient (BNVA) | payer OTHER, SELFPAY | PROVIDERS: PCP Internal Medicine; Referring Provider Internal Medicine; Visit Provider Nurse Practitioner Family | DX: I48.0 Paroxysmal atrial fibrillation (principal); I42.9 Cardiomyopathy, unspecified; Z98.890 Other specified postprocedural states; Z86.79 Personal history of other diseases of the circulatory system | CPT/HCPCS: 99212 ==

== ENCOUNTER 2024-04-06 13:53 | Outpatient (AMB) | payer MEDICARE, MEDICAID, SELFPAY ==
[2024-04-06 15:08] VITALS: BP 124/68; PULSE 60; BMI 35.2
--- NOTE | 2024-04-06 15:08 | MHC.OFFVIS ---
Vital Signs 04/06/24 15:08 Height 5 ft 7 in Weight 224 lb 13.944 oz BMI 35.2 BP 124/68 Blood Pressure Location Lt brachial Position Sitting Pulse 60 Pulse Source Monitor Intake Visit Reasons: overdue f/u needs rx Allergies sotalol Adverse Reaction (Severe, Verified 02/12/22 14:42) QT abnormalities amiodarone Adverse Reaction (Intermediate, Verified 02/12/22 14:42) Rash Medication List - Last Reconciled 04/06/24 by Aarti Ramsay NP apixaban (Eliquis) 5 mg PO BID 90 days flecainide 100 mg PO BID 90 days metoprolol succinate ER (Toprol XL) 25 mg PO DAILY 90 days HPI Comments Details: 68-year-old female presents today for a follow-up. She was last seen on 02/12/2022 with VANNA Knight. She report she has been doing good since then. No chest pains, palpitations, shortness of breath, dizziness, or bleeding issues. She reports that she is now retired and that she is going to [facility] soon for 3-4 months. FOR[facility]LY [facility], [facility] Medical History Kidney stones CHF (congestive heart failure) Atrial fibrillation Surgical History History of Family History Mother Breast cancer Father Coronary artery disease Social History Household Members: Spouse Housing: House Do you presently have visiting nurse or other home services: No Alcohol intake: current Alcohol intake frequency: holidays/special occasions only Patient Tobacco Use Status: Never used Tobacco e-Cigarette/Vaping Use: Never Used service: No Current occupational status: other Review of Systems Const Denies weakness ENT Denies dizziness Card Denies chest pain, Denies chest pain with activity, Denies syncope, Denies rapid heart rate, Denies pedal edema, Denies edema, Denies leg edema, Denies lightheadedness, Denies palpitations, Denies dyspnea, Denies dyspnea on exertion and Denies orthopnea Resp Denies cough, Denies dyspnea and Denies dyspnea on exertion GI Denies hematochezia and Denies change in stool character Musc Denies abnormal gait, Denies muscle cramps, Denies muscle weakness, Denies numbness, Denies radiating pain into limb and Denies tingling Neuro Denies abnormal gait, Denies dizziness, Denies syncope, Denies numbness, Denies tingling and Denies weakness Endo Denies palpitations Physical Exam Vital Signs: Last Vital Signs Pulse 60 04/06/24 15:08 BP 124/68 04/06/24 15:08 BMI result Body Mass Index 35.2 Const General: healthy appearing and no acute distress Orientation/consciousness: patient oriented x3 HEENT Head: Yes normal to inspection Eyes General: appearance normal, both eyes and all related structures Neck Neck: Yes normal visual inspection Chest Chest palpation & inspection: normal inspection of the chest Resp Effort & Inspection: normal respiratory effort Auscultation: clear to auscultation bilaterally Cardio Jugular venous distension: no JVD Palpation: normal PMI Rate: regular rate Rhythm: regular rhythm Heart sounds: S1 normal heart sound present, S2 normal heart sound present, no click, no gallops, no murmurs and no rubs GI Inspection: Yes normal to inspection Palpation (GI): Soft to palpation Skin General skin exam: no rashes or lesions noted Neuro General: patient oriented x3 Extrem General: Yes normal to inspection Psych Appearance: grossly normal Office Procedures EKG Details: EKG today. Normal Sinus Rhythm. Nonspecific T wave abnormality. Rate 60 bpm. IN 184 ms. QRS 106 ms. QTc 430 [place]. [id number], Complete Assessment & Plan Assessment & Plan (1) Cardiomyopathy: Code(s): I42.9 - Cardiomyopathy, unspecified Category: Medical Plan: HIRA in 2020 showed EF of 10-15%. Thought to be related to uncontrolled AFib. Will repeat echcoardiogram and holter. No signs of heart failure at this time (2) PAF (paroxysmal atrial fibrillation): Code(s): I48.0 - Paroxysmal atrial fibrillation Category: Medical Plan: No reports of palpitations. On eliquis without bleeding issues and Flecainide. Orders: Orders CA echo transthoracic complete 04/06/24 I42.9 - Cardiomyopathy, unspecified, I48.0 - Paroxysmal atrial fibrillation Complete Blood Count Auto Diff 04/06/24 I48.0 - Paroxysmal atrial fibrillation Basic Metabolic Panel 04/06/24 I42.9 - Cardiomyopathy, unspecified, I48.0 - Paroxysmal atrial fibrillation ECG 3 day holter monitor 04/06/24 I42.9 - Cardiomyopathy, unspecified, I48.0 - Paroxysmal atrial fibrillation Medications: Refilled flecainide 100 mg PO BID 180 tabs 2RF 90 days metoprolol succinate ER (Toprol XL) 25 mg PO DAILY 90 tabs 3RF 90 days apixaban (Eliquis) 5 mg PO BID 180 tabs 3RF 90 days Coding Level of Care Code Est Pt Level 4 (66455) Diagnoses Cardiomyopathy I42.9 PAF (paroxysmal atrial fibrillation) I48.0 CPT Codes EKG - CPT: 00031-[id number], Complete ([id number])
== END 2024-04-06 15:36 | disposition home or self-care (01) ==
PROVIDERS: PCP Internal Medicine; Visit Provider Nurse Practitioner
DX: R94.31 Abnormal electrocardiogram [ECG] [EKG] (principal)
CPT/HCPCS: 93010; 99214

== ENCOUNTER → 2024-04-06 13:53 | Outpatient (BNVA) | payer MEDICARE, MEDICAID, SELFPAY | PROVIDERS: PCP Internal Medicine; Visit Provider Nurse Practitioner | DX: I42.9 Cardiomyopathy, unspecified (principal); I48.0 Paroxysmal atrial fibrillation | CPT/HCPCS: 93005; 99212 ==

== ENCOUNTER 2025-02-01 08:46 | Outpatient (AMB) | payer MEDICARE, MEDICAID, SELFPAY ==
--- NOTE | 2025-02-01 08:48 | A.OFFVIS_ITS ---
Vital Signs 02/01/25 08:49 Height 5 ft 7 in Weight 225 lb 12.054 oz BMI 35.4 BP 114/62 Blood Pressure Location Lt brachial Position Sitting Pulse 70 Pulse Source Monitor Intake Visit Reasons: follow up and meds [place] Sidewalk Inspector Required: No Allergies sotalol Adverse Reaction (Severe, Verified 02/01/25 08:51) QT abnormalities amiodarone Adverse Reaction (Intermediate, Verified 02/01/25 08:51) Rash Medication List - Last Reconciled 02/01/25 by Antonia Mendenhall NP-Jossue apixaban (Eliquis) 5 mg PO BID 90 days metoprolol succinate ER (Toprol XL) 25 mg PO DAILY 90 days HPI HPI follow up and meds she is going out of the country: Details: Lauren is a 69 yo female with past medical history of obesity, mild obstructive sleep apnea, atrial fibrillation with prior cardioversion and AFib ablation done 11/20/2021, rate related cardiomyopathy with normalization in EF once rate controlled who presents for follow-up. Her last prior visit was 04/06/2024. Today she reports that she has been feeling very well since her last visit. She has no cardiac concerns. She is wondering how long she needs to take these medications. She is not feeling any heart palpitations or shakiness like she has previously reported.? She has no chest pains, shortness of breath or dizziness.? She has been taking medications as directed.?No bleeding issues reported. Going to [facility] from March 07 through May. No longer f johann with electrophysiology. [facility] Medical History Kidney stones CHF (congestive heart failure) Atrial fibrillation Surgical History History of Family History Mother Breast cancer Father Coronary artery disease Social History Household Members: Spouse Housing: House Do you presently have visiting nurse or other home services: No Alcohol intake: current Alcohol intake frequency: holidays/special occasions only Patient Tobacco Use Status: Never used Tobacco e-Cigarette/Vaping Use: Never Used service: No Current occupational status: other Review of Systems Const All systems reviewed & are unremarkable except as noted in HPI and below ENT Denies dizziness Card Denies chest pain, Denies chest pain at rest, Denies chest pain with activity, Denies rapid heart rate, Denies pedal edema, Denies edema, Denies leg edema, Denies lightheadedness, Denies palpitations, Denies dyspnea, Denies dyspnea on exertion and Denies orthopnea Resp Denies cough, Denies dyspnea and Denies dyspnea on exertion GI Denies hematochezia and Denies change in stool character Musc Denies abnormal gait, Denies limited range of motion, Denies muscle cramps, Denies muscle weakness, Denies numbness, Denies radiating pain into limb, Denies stiffness and Denies tingling Neuro Denies abnormal gait, Denies dizziness, Denies numbness and Denies tingling Endo Denies palpitations Physical Exam Vital Signs: Last Vital Signs Pulse 70 02/01/25 08:49 BP 114/62 02/01/25 08:49 BMI result Body Mass Index 35.4 Const General: cooperative, healthy appearing, comfortable and no acute distress Orientation/consciousness: patient oriented x3 Neck Neck: Yes normal visual inspection Resp Effort & Inspection: normal respiratory effort Auscultation: clear to auscultation bilaterally, no rales, no rhonchi and no wheezes Cardio Rate: regular rate Rhythm: regular rhythm Heart sounds: S1 normal heart sound present, S2 normal heart sound present, no gallops, no murmurs and no rubs Neuro General: patient oriented x3 Extrem General: Yes normal to inspection, No no pedal edema and No calf tenderness Psych Appearance: grossly normal Mental Status: mental status grossly normal Speech and movement: Normal speech and movement present Office Procedures EKG Details: Today, read by me, Normal sinus rhythm, nonspecific ST/ T wave abn, rate 70, Qtc 449ms [id number], Complete Assessment & Plan Assessment & Plan (1) PAF (paroxysmal atrial fibrillation): Code(s): I48.0 - Paroxysmal atrial fibrillation Category: Medical Plan: History of paroxysmal atrial fibrillation, 1st identified in 2020. She had under cardioversion with recurrent AFib. She then underwent AFib ablation 11/20/2021. She has not had any known recurrent atrial fibrillation since that time. Her current med list does include flecainide 50 mg b.i.d., metoprolol XL 25 mg daily and Eliquis 5 mg b.i.d.. EKG done today shows normal sinus rhythm, nonspecific ST and T-wave abnormality, QTC 449 milliseconds, rate 70. Will have her stop flecainide. Will obtain Holter monitor in 2 weeks. Will update echocardiogram. Plan to call her with test results. Cardiology follow-up when she returns from [facility] in approximately 4 months, sooner if needed. (2) Cardiomyopathy: Code(s): I42.9 - Cardiomyopathy, unspecified Category: Medical Plan: Echocardiogram done 07/03/2021 shows EF 10-15%. Cardiomyopathy was felt to be related to uncontrolled AFib RVR. Repeat echo done after rate and rhythm control shows normalization of EF. No clinical signs of HF on exam today. Will update echo. (3) S/P ablation of atrial fibrillation: Comment: with Dr Phipps, 11/20/21 Code(s): Z98.890 - Other specified postprocedural states; Z86.79 - Personal history of other diseases of the circulatory system Category: Surgical Plan: As above Plan Time spent on chart review, documentation, interview and assessment Patient was informed and verbally consented to the use of an ambient scribe for clinic note documentation during this visit. I discussed with the patient the plan to discontinue flecainide, given her stable condition post-ablation, and to continue on metoprolol and Eliquis. We reviewed the logistical details of using a Holter monitor to track any changes in her cardiac rhythm over a few days and the expected echocardiogram to assess cardiac function. The risks of potential atrial fibrillation recurrence were acknowledged, with instructions to use flecainide if needed while traveling abroad. Consent was obtained after reviewing risks and benefits. The follow-up plan was established post-return from travel. Orders: Orders CA echo transthoracic complete 02/14/25 I48.0 - Paroxysmal atrial fibrillation ECG 3 day holter monitor Today I48.0 - Paroxysmal atrial fibrillation Medications: Discontinued flecainide Discontinued Reason: Doctor's Order 100 mg PO BID 90 days 180 tabs 2RF Patient Instructions: - Discontinue flecainide; no dose required past this morning. - Continue metoprolol and Eliquis as prescribed. - Carry flecainide while traveling to use if atrial fibrillation symptoms recur. - Undergo Holter monitor and echocardiogram testing as scheduled. - Follow up after returning from your trip in May. - Remain aware of symptoms like palpitations or chest pain and seek care if they occur. Coding Level of Care Code Est Pt Level 4 (29455) Complex EM visit Add On G2211 Diagnoses PAF (paroxysmal atrial fibrillation) I48.0 Cardiomyopathy I42.9 S/P ablation of atrial fibrillation Z98.890; Z86.79 CPT Codes EKG - CPT: 64941-[id number], Complete ([id number]) Time Spent (min) 32
[2025-02-01 08:49] VITALS: BP 114/62; PULSE 70; BMI 35.4
== END 2025-02-01 09:25 | disposition home or self-care (01) ==
LOC: HO.HCS 08:47
PROVIDERS: PCP Internal Medicine; Visit Provider Nurse Practitioner Family
DX: I48.0 Paroxysmal atrial fibrillation (principal); I42.9 Cardiomyopathy, unspecified; Z98.890 Other specified postprocedural states; Z86.79 Personal history of other diseases of the circulatory system
CPT/HCPCS: 93010; 99214; G2211

== ENCOUNTER → 2025-02-01 08:46 | Outpatient (BNVA) | payer MEDICARE, MEDICAID, SELFPAY | PROVIDERS: PCP Internal Medicine; Visit Provider Nurse Practitioner Family | DX: I48.0 Paroxysmal atrial fibrillation (principal); I42.9 Cardiomyopathy, unspecified; Z86.79 Personal history of other diseases of the circulatory system; Z98.890 Other specified postprocedural states; R94.31 Abnormal electrocardiogram [ECG] [EKG] | CPT/HCPCS: 93005; 99212 ==

== ENCOUNTER → 2025-02-12 08:45 | Outpatient (REF) | payer MEDICARE, MEDICAID, SELFPAY | LOC: HO.CARD 08:45 | PROVIDERS: Visit Provider Nurse Practitioner Family | DX: I48.0 Paroxysmal atrial fibrillation (principal) | CPT/HCPCS: 93242 ==

== ENCOUNTER → 2025-02-12 08:48 | Outpatient (BNV) | payer MEDICARE, MEDICAID, SELFPAY | PROVIDERS: Visit Provider Internal Medicine Cardiovascular Disease | DX: I49.3 Ventricular premature depolarization (principal); I49.1 Atrial premature depolarization | CPT/HCPCS: 93244 ==

== ENCOUNTER → 2025-03-02 07:57 | Outpatient (REF) | payer MEDICARE, MEDICAID, SELFPAY ==
--- NOTE | 2025-03-02 08:00 | CA_ITS ---
Transthoracic Echocardiogram Patient (Last, First, Middle): Lauren Hinojosa, Gender: Female Date of : 1955 Age: 69 Procedure Date: 03/02/2025 Procedure Type: Transthoracic Echocardiogram Location: OP Height: 170. cm Weight: 90.72 kg BSA: 2.02 m2 Heart Rate: 74 bpm BP: 118 / 75 mmHg Vice President Business Development: CLAUS Referring MD: Antonia Mendenhall STATIC BALANCERCarla Symptoms: I48.0 - Paroxysmal atrial fibrillation Study Quality: Fair ECG Rhythm: Sinus Conclusions: - The left ventricular systolic function is mildly decreased. Visually estimated LVEF about 50%. - No obvious valvular pathology seen on this study. Findings Left Ventricle Normal left ventricular cavity size. There is normal left ventricular wall thickness. The left ventricular systolic function is mildly decreased. There is no evidence of regional wall motion abnormalities. Diastolic function is normal for age. Visually estimated LVEF about 50%. Right Ventricle Normal right ventricular cavity size. There is mildly decreased right ventricular systolic function. Atria Both atria are normal in size. Aortic Valve There is a normal trileaflet aortic valve. There is no aortic valve stenosis. There is no aortic valve regurgitation. Mitral Valve The mitral valve appears normal. There is trace mitral valve regurgitation. There is no mitral valve stenosis. Pulmonic Valve The pulmonic valve is likely normal. Tricuspid Valve There is trace tricuspid valve regurgitation. There is no evidence of pulmonary hypertension. Great Vessels The asc aorta and aortic arch are normal in size. Venous The inferior vena cava is normal in size and collapses greater than 50% with inspiration. Pericardium/Pleural There is no evidence of pericardial effusion. Prior Study Comparison Changes noted compared to prior study dated: 07/03/2021. Improved LVEF. Recommendations, Care & Conclusions No obvious valvular pathology seen on this study. Measurements 2D Linear Measurements IVSd: 0.83 0.6-0.9/0.6-1.0 cm LVIDd: 5.03 3.9-5.3/4.2-5.9 cm LVIDd Index: 2.49 2.4-3.2/2.2-3.1 cm/m2 LVIDs: 3.20 2.0-3.6 cm LVPWd: 0.85 0.7-1.1 cm LA Diam: 3.60 2.7-3.8/3.0-4.0 cm LAIDs Index: 1.78 1.5-2.3 cm/m2 LV Mass: 182.12 67-162/88-224 g LV Mass Index: 90.16 43-95/49-115 g/m2 LVOT Diam: 2.20 3.0+(-)1.3 cm 2D Systolic Function EF 4C: 56.80 >55% EF 2C: 57.20 >55% EF BiP: 58.10 >55% Mitral Valve MV Pk E: 0.67 MV PK A: 0.48 MV Decel Time: 205.00 E/A: 1.40 E'Lateral: 7.94 E'Medial: 7.94 E/E' Med: 8.50 E/E' Lat: 8.50 PHT: 60.00 MVA PHT: 3.67 Decel Christian: 3.29 Aortic Valve AoV Pk Jefry: 1.22 AoV Mn Jefry: 0.93 AoV VTI: 0.28 AoV Pk Grad: 6.00 Aov Mn Grad: 4.00 FREDDY Cont.VTI: 2.21 LVOT LVOT Pk Jefry: 0.78 LVOT Mn Jefry: 0.57 LVOT VTI: 0.17 LVOT Pk Grad: 2.00 LVOT Mn Grad: 2.00 LVOT Diam: 2.20 LVOT Area: 3.80 Diastolic Function MV Pk E: 0.67 MV Pk A: 0.48 E/A: 1.40 E'Medial: 7.94 E/E' Med: 8.50 E' Laterial: 7.94 E/E' Lat: 8.50 Right Ventricle TAPSE (mm): 13.80 TVS' Jefry: 7.51 Tricuspid Valve TR Pk Jefry: 1.58 TR Pk Grad: 10.00 RA Press: 3.00 RVSP: 13.00 Great Vessels Aorta Sinus of Valsalva: 3.20 2.0-3.5 cm Ao Asc: 3.10 2.1-3.4 cm Ao Arch: 2.80 Pulmonary Valve PV Pk Jefry: 0.76 Peak PV Grad: 2.00 Updated in Other Vendor System with Status of Final Lorne Ayala MD electronically signed on 03/03/2025 1:48:05 PM with status of Final
== END ==
LOC: HO.CARD 07:57
PROVIDERS: Visit Provider Nurse Practitioner Family
DX: I48.0 Paroxysmal atrial fibrillation (principal)
CPT/HCPCS: 93306

== ENCOUNTER → 2025-03-02 08:00 | Outpatient (BNV) | payer MEDICARE, MEDICAID, SELFPAY | PROVIDERS: Visit Provider Internal Medicine | DX: I34.0 Nonrheumatic mitral (valve) insufficiency (principal); I48.0 Paroxysmal atrial fibrillation | CPT/HCPCS: 93306 ==

== ENCOUNTER 2025-07-05 13:18 | Outpatient (AMB) | payer MEDICARE, MEDICAID, SELFPAY ==
[2025-07-05 13:20] VITALS: BP 114/80; PULSE 79; BMI 34.7
--- NOTE | 2025-07-05 13:20 | MHC.OFFVIS ---
Vital Signs 07/05/25 13:20 Height 5 ft 7 in Weight 221 lb 5.506 oz BMI 34.7 BP 114/80 Blood Pressure Location Lt brachial Position Sitting Pulse 79 Pulse Source Pulse Oximeter Intake Visit Reasons: f/up echo/ holter Pack Puller Required: No Accompanied by: Self / Same As Patient Allergies sotalol Adverse Reaction (Severe, Verified 07/05/25 13:24) QT abnormalities amiodarone Adverse Reaction (Intermediate, Verified 07/05/25 13:24) Rash Medication List - Last Reconciled 07/05/25 by MARION Hurd apixaban (Eliquis) 5 mg PO BID 90 days metoprolol succinate ER (Toprol XL) 25 mg PO DAILY 90 days HPI HPI f/up echo/ holter: Details: Lauren is a 69 yo female with past medical history of obesity, mild obstructive sleep apnea, atrial fibrillation with prior cardioversion and AFib ablation done 11/20/2021, rate related cardiomyopathy with normalization in EF once rate controlled who presents for follow-up. On last visit her flecainide was stopped. Today she reports that she went to [facility] for 4 months since last visit. While there she had feelings of uneasiness in her chest and fatigue, symptoms that she noted previously with atrial fibrillation. She did not notice any clear heart palpitations. She says she took flecainide 100 mg once a day and this controlled her symptoms. She just ran out in his requesting a refill.? She has no chest pains, shortness of breath or dizziness.? She has been taking Eliquis without any interruption.?No bleeding issues reported. [facility] Medical History Kidney stones CHF (congestive heart failure) Atrial fibrillation Surgical History History of Family History Mother Breast cancer Father Coronary artery disease Social History Household Members: Spouse Housing: House Do you presently have visiting nurse or other home services: No Alcohol intake: current Alcohol intake frequency: holidays/special occasions only Patient Tobacco Use Status: Never used Tobacco e-Cigarette/Vaping Use: Never Used service: No Current occupational status: other Review of Systems Const All systems reviewed & are unremarkable except as noted in HPI and below Denies daytime sleepiness, Denies difficulty sleeping, Denies snoring, Denies stops breathing during sleep and Denies weakness Card Denies chest pain, Denies rapid heart rate, Denies irregular heart rhythm, Denies claudication, Denies leg edema, Denies lightheadedness, Denies palpitations, Denies dyspnea, Denies dyspnea on exertion, Denies orthopnea, Denies paroxysmal nocturnal dyspnea and Denies slow heart rate Resp Denies cough, Denies dyspnea, Denies dyspnea on exertion and Denies snoring GI Reports no additional complaints, Denies hematochezia, Denies change in stool character and Denies dyspepsia Musc Denies abnormal gait, Denies muscle weakness and Denies numbness Neuro Denies abnormal gait, Denies numbness and Denies weakness Endo Denies palpitations Physical Exam Vital Signs: Last Vital Signs Pulse 79 07/05/25 13:20 BP 114/80 07/05/25 13:20 BMI result Body Mass Index 34.7 Office Procedures EKG Details: Today, read by me, normal sinus rhythm rate 69, QTC 426 millisecond [id number], Complete Assessment & Plan Assessment & Plan (1) PAF (paroxysmal atrial fibrillation): Code(s): I48.0 - Paroxysmal atrial fibrillation Category: Medical Plan: History of paroxysmal atrial fibrillation, 1st identified in 2020. She had under cardioversion with recurrent AFib. She then underwent AFib ablation 11/20/2021. She has not had any known recurrent atrial fibrillation since that time. On last visit her flecainide was stopped and she was continued on, metoprolol XL 25 mg daily and Eliquis 5 mg b.i.d.. While in [facility] she had symptoms that for her were concerning for AFib. She did take flecainide 100 mg once a day until recently. EKG done today shows normal sinus rhythm, rate 69. Will check Holter monitor. Then likely use flecainide 50 mg b.i.d. if shown to have recurrent AFib. If she does have AFib then a repeat ablation can be considered. Cardiology follow-up 3 months, sooner if needed. (2) Cardiomyopathy: Code(s): I42.9 - Cardiomyopathy, unspecified Category: Medical Plan: Echocardiogram done 07/03/2021 shows EF 10-15%. Cardiomyopathy was felt to be related to uncontrolled AFib RVR. Repeat echo done after rate and rhythm control shows normalization of EF. Last echo done 03/02/2025 showing EF 50%, no valve abnormalities. No clinical signs of HF on exam today. (3) S/P ablation of atrial fibrillation: Comment: with Dr Phipps, 11/20/21 Code(s): Z98.890 - Other specified postprocedural states; Z86.79 - Personal history of other diseases of the circulatory system Category: Surgical Plan: As above Plan Time spent on chart review, documentation, interview and assessment Orders: Orders ECG 3 day holter monitor Today I48.0 - Paroxysmal atrial fibrillation Medications: New flecainide 50 mg PO Q12H 60 tabs 3RF Coding Level of Care Code Est Pt Level 4 (42513) Complex EM visit Add On G2211 Diagnoses PAF (paroxysmal atrial fibrillation) I48.0 Cardiomyopathy I42.9 S/P ablation of atrial fibrillation Z98.890; Z86.79 CPT Codes EKG - CPT: 96217-[id number], Complete ([id number]) Time Spent (min) 28
== END 2025-07-05 14:03 | disposition home or self-care (01) ==
LOC: HO.HCS 13:19
PROVIDERS: PCP Internal Medicine; Visit Provider Nurse Practitioner Family
DX: I48.0 Paroxysmal atrial fibrillation (principal); I42.9 Cardiomyopathy, unspecified; Z98.890 Other specified postprocedural states; Z86.79 Personal history of other diseases of the circulatory system
CPT/HCPCS: 93010; 99214; G2211

== ENCOUNTER → 2025-07-05 13:18 | Outpatient (BNVA) | payer MEDICARE, MEDICAID, SELFPAY | PROVIDERS: PCP Internal Medicine; Visit Provider Nurse Practitioner Family | DX: I48.0 Paroxysmal atrial fibrillation (principal); I42.9 Cardiomyopathy, unspecified; Z86.79 Personal history of other diseases of the circulatory system; Z98.890 Other specified postprocedural states | CPT/HCPCS: 93005; 99212 ==

== ENCOUNTER → 2025-07-13 12:55 | Outpatient (REF) | payer MEDICARE, MEDICAID, SELFPAY ==
--- NOTE | 2025-07-13 13:00 | HM_ITS ---
* Total monitoring time 3 days. * Underlying rhythm is sinus with an average rate of 78/Min. * Rare supraventricular ectopy. * Ventricular ectopy with a burden of 3.1%. Rare couplets and one triplet. No significant pauses or high-grade AV blocks. * No patient markers or diary events. MTDD
--- OUTSIDE RECORDS SUMMARY | 2025-07-13 15:14 | XMS_ITS ---
Author Name [facility] Organization Unknown Care Team Organization Name Specialty Phone Email Start Date End Da te [facility] Sabina [facility] 10/05/2022 024 [facility] Sunshine [facility]ett [facility] 08/04/202204/27
== END ==
LOC: HO.CARD 12:55
PROVIDERS: Visit Provider Nurse Practitioner Family
DX: I48.0 Paroxysmal atrial fibrillation (principal)
CPT/HCPCS: 93242

== ENCOUNTER → 2025-07-13 13:00 | Outpatient (BNV) | payer MEDICARE, MEDICAID, SELFPAY | PROVIDERS: Visit Provider Internal Medicine | DX: I49.3 Ventricular premature depolarization (principal); I49.49 Other premature depolarization | CPT/HCPCS: 93244 ==